=== PATIENT | male | born 1960 | race Caucasian/White ===

== ENCOUNTER 2023-05-25 03:28 | Emergency (ER) | payer BC, SELFPAY ==
--- NOTE | 2023-05-25 03:30 | RT.EKG_ITS ---
APPROVED REPORT Exam: Resting ECG Reason for Exam: abd pain Patient Location: E HR:66 bpm ECG Measurements Heart Rate 66 AXIS LA 149 P 62 QRSd 105 QRS 72 QT 408 T 56 QTc 429 Conclusion Sinus rhythm...normal P axis, V-rate 60- 99 Low voltage, extremity leads...all extremity leads <0.5mV Physician: no stemi
[2023-05-25 03:34] VITALS: BP 161/84; PULSE 71; RESP 22; TEMP 36.8; O2SAT 99
--- NOTE | 2023-05-25 03:51 | W.ED.GENAD ---
Discharge Plan Disposition Patient Disposition: Home Condition: Good Discharge Details Clinical Impression: Acute right-sided thoracic back pain, Pleural effusion on right Primary Care Provider: Froilan Marcos ED Provider: Shailesh Silveira Home Meds and New Rx's Prescriptions: New cyclobenzaprine 10 mg tablet 10 mg PO TID Qty: 14 0RF lidocaine [Lidoderm] 5 % adhesive patch,medicated 1 patch Topical Q24H Qty: 15 0RF No Action budesonide-formoterol [Symbicort] 160-4.5 mcg/actuation HFA aerosol inhaler 2 puff inhalation BID PRN albuterol sulfate 90 mcg/actuation HFA aerosol inhaler 2 puff inhalation 6XD bupropion HCl 300 mg tablet extended release 24 hr 300 mg PO QAM ipratropium-albuterol 0.5 mg-3 mg(2.5 mg base)/3 mL solution for nebulization 3 ml inhalation QID PRN lisinopril 2.5 mg tablet 2.5 mg PO DAILY metformin 1,000 mg tablet 1,000 mg PO BID metoprolol tartrate 25 mg tablet 25 mg PO QID rosuvastatin 20 mg tablet 20 mg PO DAILY Stiolto Respimat 2.5-2.5 mcg/actuation mist 2 puff inhalation DAILY roflumilast 500 mcg tablet See Rx Instructions .ROUTE .COMPLEX Qty: 30 12RF Dose Instruction: TAKE ONE TABLET BY MOUTH EVERY DAY; START THIS DOSE AFTER FINISHING THE 250 MCG DOSE Rx Instructions: TAKE ONE TABLET BY MOUTH EVERY DAY; START THIS DOSE AFTER FINISHING THE 250 MCG DOSE Eliquis 5 mg tablet 5 mg PO DAILY Discharge Instructions Instructions: Pleural Effusion (ED), Flank Pain (ED) Additional Instructions: At this time your workup has returned reassuring. There is no evidence of infection in your blood or low blood levels. Your electrolytes and renal function is notably stable. There is no evidence of blood or infection in your urine. Your heart shows no evidence of heart attack on your initial and repeated blood work as well as your EKG. As we discussed together there is evidence of a very trace pleural effusion in your right lung with some irritation in that area. This may be causing a component of your symptoms. Additionally your low back pain may be referred from this, or separate but causing a bit of pain and strain in that area. Please take the Flexeril/cyclobenzaprine as needed for muscle relaxant. Please do not take this while driving, working, operating heavy machinery, or shooting. Please apply the Lidoderm patches to your back as needed. Please continue to take 1000 mg of Tylenol every 6 hours. The effusion should resolve on its own with time. If your symptoms continue to persist even after treatment, you may need to follow-up with press tender for potential drainage if indicated. If you notice any worsening of your symptoms, or any new symptoms such as vomiting, diarrhea, fever, chills, shortness of breath, chest pain, numbness, weakness, or fainting , please return immediately to the emergency department for reevaluation. Please follow up with your primary care provider as soon as possible for reassessment and reevaluation. As always, it was a pleasure participating in your medical care today. 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 Patient states that 4 days ago the pain began, it was sharp and achy in nature and present in the right back and flank and eventually transitioned into the right lower chest and right upper abdomen. He denies any vomiting or diarrhea. He has developed a mild cough but he states that this is more chronic than acute. He states that this feels completely different than his previous heart attack or blood clot. He has been patient taking his medications as directed. Pain is made worse with movement. Improved by nothing. Patient reports that he went to [facility] emergency department yesterday, had a seemingly very appropriate workup, had a CAT scan, and was informed findings were unremarkable. He states that his primary care provider reviewed the images and requested that the patient come back to the ER for reassessment. Patient did take Tylenol but this did not significantly change his symptoms. He denies any tearing or ripping sensation. No fever or chills. Exam demonstrates well-appearing male, mild right CVA tenderness and right reproducible tenderness to the right paraspinal space near L1. No anterior abdominal tenderness. Lungs are clear. Image report reviewed from [facility], no acute process in the abdomen and pelvis for noncontrast CT scan. Questionable mild bronchitis in the right lower lung field. Laboratory eval from report demonstrates no significant abnormality. Differential at this time includes urolithiasis which is unlikely, UTI, small bleb causing the patient's pain, potential PE which is unlikely given his compliance to his medication. Cardiac etiology appears unlikely but remains on the differential. Will get a D-dimer, evaluate electrolyte and renal status, check a troponin, urine, monitor closely give Ofirmev and Lidoderm patch. Bedside echo shows a slightly reduced ejection fraction, good lung sliding bilaterally, slightly enlarged right-sided kidney. 4:48 AM Laboratory workup demonstrates slightly elevated D-dimer, mildly elevated proBNP, no white count. Hemoglobin 13, stable renal function. Urinalysis negative. Bedside echo shows good lung sliding, slightly reduced ejection fraction, minimally enlarged right kidney. Patient does have a reported allergy to contrast, however this is not the case, he states that it was only because of his previous renal function. Will get contrasted CT imaging for further diagnostic evaluation as [facility]'s CAT scan did not identify acute process considering the current differential. 7:23 AM Initial and repeat troponin have returned normal. EKG stable. CTA of the chest shows no evidence of pulmonary embolism, or some mild irritation of the esophagus, as well as a trace right pleural effusion with subjacent subsegmental atelectasis in the right lung base. No evidence of localized pneumonia. The remainder of the CT scan is unremarkable otherwise per radiology. No other acute process in particular. I do wonder if this effusion may be causing the pain, as well as potential mild pulmonary fibrosis and/or adhesion from prior chemo/radiation albeit the opposite side. Back pain may be separate or mild and referred. Suspect mild paraspinal spasm as a secondary component of the pain. Patient is stable otherwise. Personal limited bedside echo showed no evidence of significant wall motion abnormality. There was a slightly reduced EF but no other major abnormality on personal assessment. Symptoms notably clinically inconsistent with dissection, PE, aneurysmal rupture, kidney stone, psoas muscle hematoma, or other abnormality. Will recommend continued Tylenol at home, Lidoderm patches, and the patient will be given Flexeril for continued use. Recommend close follow-up with PCP. If symptoms persist then pulmonology referral may be indicated for potential drainage of the trace effusion although I feel this is less likely. Discussed red flags which to return. I have extensively reviewed the treatment plan and discharge instructions with the patient. I have addressed all patient concerns at this time. The patient was made aware of what symptoms to monitor for that would warrant a return to the emergency department. Discussed the plan with the patient, they demonstrate verbal understanding and agreement with our assessment and plan at this time. The documentation in this chart was dictated using [employer] dictation software. Please excuse any dictation errors. FINDINGS: VASCULATURE: Pulmonary arteries: Normal. No pulmonary emboli. Aorta: No aortic aneurysm. No aortic dissection. Celiac trunk and mesenteric arteries: No occlusion or significant stenosis. Renal arteries: No occlusion or significant stenosis. CHEST: Lungs: Mild ground-glass attenuation of the lungs. Linear subsegmental atelectasis at the right lung base. No acute lung infiltrates. No pulmonary nodules. Pleural spaces: Trace right pleural effusion. No pneumothorax Heart: Unremarkable. No cardiomegaly. No pericardial effusion. Coronary arteries: Mild atherosclerotic calcifications of the coronary arteries. Mediastinal space: Mild diffuse thickening of the wall of the esophagus. ABDOMEN AND PELVIS: Liver: Focal fatty infiltration of the liver is seen adjacent to the falciform ligament. Otherwise unremarkable liver. Gallbladder and bile ducts: Unremarkable. No calcified stones. No ductal dilation. Pancreas: Unremarkable. No mass. No ductal dilation. Spleen: Unremarkable. No splenomegaly. Adrenal glands: Unremarkable. No mass. Kidneys and ureters: Unremarkable. No solid mass. No hydronephrosis. Stomach and bowel: Moderate to large amount of stool in the right colon. No gross bowel abnormalities. No obstruction. Appendix: Normal appendix. Intraperitoneal space: Unremarkable. No free air. No significant fluid collection. Urinary bladder: Urinary bladder partially collapsed, limiting evaluation,. Prominence of the wall of the urinary bladder, which may be related to underdistention. Reproductive: Mildly enlarged prostate. Possible TURP defect. Lymph nodes: Unremarkable. No enlarged lymph nodes. Bones/joints: Unremarkable. No acute fracture. Soft tissues: Large fat containing umbilical hernia, without inflammatory changes. Mild diastasis of the rectus abdominus muscles. Moderate size fat containing direct left inguinal hernia, without inflammatory changes. IMPRESSION: 1. No evidence of pulmonary embolism. 2. Findings raising the possibility of esophagitis. If the patient has symptoms referable to this region, suggest GI referral and consider upper endoscopy and/or esophagram for further evaluation. 3. Trace right pleural effusion, with subjacent subsegmental atelectasis at the right lung base. 4. Mild ground-glass attenuation of the lungs. This may be attributable to suboptimal inspiration or mild congestion. 5. Mildly enlarged prostate. 6. Large fat containing umbilical hernia, without inflammatory changes. 7. Moderate size fat containing direct left inguinal hernia, without inflammatory changes. 8. Prominence of the wall of the urinary bladder, which may be related to underdistention. Other etiologies are not excluded. Correlate with laboratory data. Thank you for allowing us to participate in the care of your patient. Dictated and Authenticated by: Adeline Washington MD 05/25/2023 6:59 AM Eastern Time ([place] & [place]) HPI General Date/Time Provider Initiated Documentation: 05/25/23 03:30. 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 Patient states that 4 days ago the pain began, it was sharp and achy in nature and present in the right back and flank and eventually transitioned into the right lower chest and right upper abdomen. He denies any vomiting or diarrhea. He has developed a mild cough but he states that this is more chronic than acute. He states that this feels completely different than his previous heart attack or blood clot. He has been patient taking his medications as directed. Pain is made worse with movement. Improved by nothing. Patient reports that he went to [facility] emergency department yesterday, had a CAT scan, and was informed findings were unremarkable. He states that his primary care provider reviewed the images and requested that the patient come back to the ER for reassessment. Patient did take Tylenol but this did not significantly change his symptoms. He denies any tearing or ripping sensation. No fever or chills. Related Data Home Medications Medication Instructions Recorded Confirmed albuterol sulfate 90 mcg/actuation 2 puff inhalation 6XD 05/01/21 05/25/23 aerosol inhaler bupropion HCl 300 mg 24 hr tablet, 300 mg PO QAM 05/01/21 05/25/23 extended release ipratropium 0.5 mg-albuterol 3 mg 3 ml inhalation QID PRN 05/01/21 05/25/23 (2.5 mg base)/3 mL nebulization soln lisinopril 2.5 mg tablet 2.5 mg PO DAILY 05/01/21 05/25/23 metformin 1,000 mg tablet 1,000 mg PO BID 05/01/21 05/25/23 metoprolol tartrate 25 mg tablet 25 mg PO QID 05/01/21 05/25/23 rosuvastatin 20 mg tablet 20 mg PO DAILY 05/01/21 05/25/23 tiotropium 2.5 mcg-olodaterol 2.5 2 puff inhalation DAILY 05/01/21 05/25/23 mcg/actuation mist for inhalation (Stiolto Respimat) budesonide-formoterol HFA 160 2 puff inhalation BID PRN 12/11/21 05/25/23 mcg-4.5 mcg/actuation aerosol inhaler (Symbicort) roflumilast 500 mcg tablet See Rx Instructions .Route 12/17/22 05/25/23 .COMPLEX #30 tabs apixaban 5 mg tablet (Eliquis) 5 mg PO DAILY 05/25/23 05/25/23 cyclobenzaprine 10 mg tablet 10 mg PO TID #14 tabs 05/25/23 lidocaine 5 % topical patch 1 patch topical Q24H #15 ea 05/25/23 (Lidoderm) Previous Rx's Medication Instructions Recorded roflumilast 500 mcg tablet See Rx Instructions .Route 12/17/22 .COMPLEX #30 tabs cyclobenzaprine 10 mg tablet 10 mg PO TID #14 tabs 05/25/23 lidocaine 5 % topical patch 1 patch topical Q24H #15 ea 05/25/23 (Lidoderm) Allergies Allergy/AdvReac Type Severity Reaction Status Date / Time Iodinated Contrast Media AdvReac Unknown screws up Unverified 05/25/23 03:40 my creatinine General Stated Complaint: Nk/Back Pain SOCORRO: 3 Review of Systems All systems reviewed & are unremarkable except as noted in HPI and below PFSH All Active Problems (Updated 05/25/23 @ 07:17 by Shailesh Silveira DO) Pleural effusion on right (Acute) Acute right-sided thoracic back pain (Acute) COPD (chronic obstructive pulmonary disease) (Chronic) Personal history of nicotine dependence (Acute) Atherosclerosis of coronary artery without angina pectoris (Acute) Primary malignant neoplasm of left lung (Acute) Acquired pes planus of right foot (Acute) Disorder of the skin and subcutaneous tissue, unspecified (Acute) Increased frequency of urination (Acute) Nausea (Acute) Dizziness and giddiness (Acute) Pain, joint, ankle and foot (Acute) Chronic renal impairment (Acute) Umbilical hernia without obstruction and without gangrene (Acute) Hypertensive disorder (Chronic) Neuropathy (Acute) Obstructive sleep apnea syndrome in adult (Acute) Insomnia (Acute) Acute stress disorder (Acute) Obesity (Chronic) Hyperlipidemia (Acute) Type 2 diabetes mellitus without complication (Acute) Medical History COPD (chronic obstructive pulmonary disease) Emphysematous bleb of lung Family History Mother Cancer Father Cancer Social History Smoking/Tobacco Use Status: Former Tobacco Use Quit Date: 05/27/01 Smoking risk assessment performed?: Yes Alcohol Intake: never Drug use: Never Substance use type: does not use Housing: apartment Do you feel safe at home: Yes Do you feel safe in your relationship?: Yes Exam Narrative Exam Narrative: 1.Const: Well-nourished, Well-developed, appearing stated age 2.Eyes: PERRL, no conjunctival injection, and symmetrical lids. 3.ENT: Atraumatic external nose and ears. Moist MM. Neck: Symmetric, trachea midline, No thyromegaly. 4.CVS: +S1/S2, No murmurs or gallops. Peripheral pulses 2+ and equal in all extremities. Brisk capillary refill in all extremities. 5.RESP: Unlabored respiratory effort. Clear to auscultation bilaterally. No wheezes rales or rhonchi 6.GI: Soft, Nontender/Nondistended, No hepatosplenomegaly. No guarding or rebound. Mild right-sided CVA tenderness. No pain to McBurney's point, negative Thomas sign. Mild reproducible right paraspinal tenderness at L1 7.MSK: Normocephalic/Atraumatic, Extremities w/o deformity or ttp No cyanosis or clubbing, Normal movement of all extremities 8.Skin: Warm, Dry. No rashes or lesions. 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 Sensation grossly intact, no focal neurologic deficits. 10.Psych: (AAO) x3. Appropriate mood and affect Course Vital Signs Vital signs: Vital Signs Temperature 36.8 C 05/25/23 03:34 Pulse 71 05/25/23 03:34 Respiratory Rate 22 05/25/23 03:34 Blood Pressure 161/84 H 05/25/23 03:34 Pulse Oximetry 99 05/25/23 03:34 Temperature 36.8 C 05/25/23 03:34 Temperature Source Oral 05/25/23 03:34 Pulse 71 05/25/23 03:34 Respiratory Rate 22 05/25/23 03:34 Respiratory Effort Normal, Non-Labored 05/25/23 03:44 Blood Pressure 161/84 H 05/25/23 03:34 Blood Pressure Position Sitting 05/25/23 03:34 Pulse Oximetry 99 05/25/23 03:34 Oxygen Delivery Method Room Air 05/25/23 03:34 Oxygen Flow Rate 0 05/25/23 03:34 Pain Level 7 05/25/23 03:44 POCUS Exam (ED) Limited Cardiac Exam DATE OF EXAM: 05/25/23 TIME OF EXAM: 04:47 PROVIDER THAT PERFORMED THE STUDY: Shailesh Silveira IS THIS A REPEAT EXAM DURING THIS ENCOUNTER: no REASON FOR EXAM: Chest pain VISUALIZED STRUCTURES: Left atrium, Left ventricle and Interventricular septum VIEW OBTAINED: Parasternal long-axis PERTINENT FINDINGS/IMPRESSION: LV dysfunction :mild Exam complete Limited Thoracic Lung Exam DATE OF EXAM: 05/25/23 TIME OF EXAM: 04:48 PROVIDER THAT PERFORMED THE STUDY: Shailesh Silveira IS THIS A REPEAT EXAM DURING THIS ENCOUNTER: No REASON FOR EXAM: Chest pain VISUALIZED STRUCTURES: right anterior and left anterior PERTINENT FINDINGS/IMPRESSION: lung sliding left side and lung sliding left side Exam complete
[2023-05-25 04:02] LABS: Abs Immature Grans 0.02 10^3/uL (0.0-0.06); Absolute Basophil Count 0.07 10^3/uL (0.0-0.2); Absolute Eosinophil Count 0.16 10^3/uL (0.0-0.7); Absolute Lymphocyte Count 1.28 10^3/uL (1.2-3.4); Absolute Monocyte Count 0.86 10^3/uL (0.1-0.8); Absolute Neutrophil Count 5.98 10^3/uL (1.2-6.7); Basophils % 0.8; Eosinophils % 1.9; HCT 40.8 % (40.0-50.0); HGB 13.3 g/dL (13.5-17.5); Immature Grans % 0.2; Lymphocytes % 15.3; MCH 32.1 pg (27.0-33.0); MCHC 32.6 % (32.0-36.0); MCV 99 fL (80-95); MPV 9.2 fL (8.0-11.0); Monocytes % 10.3; Neutrophils % 71.5; Platelet Count 256 10^3/uL (130-400); RBC 4.14 10^6/uL (4.36-5.78); RDW 13.4 % (11.8-14.1); WBC 8.37 10^3/uL (4.4-10.8)
[2023-05-25] MEDS: Lidocaine 5% Patch 1 PATCH TP (04:04)
[2023-05-25] MEDS: ACETAMINOPHEN 1,000 MG/100 ML BTL 400 MG IVPB (04:04)
[2023-05-25 04:15] LABS: INR 1.2 (0.9-1.1); PTT Activated 35.2 sec (23.6-32.8); Prothrombin Time 11.8 sec (9.1-11.1)
[2023-05-25 04:26] LABS: ALT 17 U/L (16-63); AST 17 U/L (15-37); Albumin 3.4 g/dL (3.4-5.0); Alkaline Phosphatase 83 U/L (46-116); Anion Gap 10.1 mmol/L (3-11); BUN 19 mg/dL (7-18); Bilirubin, Total 0.8 mg/dL (0.2-1.0); CO2 27.9 mmol/L (21.0-32.0); CREATININE 1.3 mg/dL (0.70-1.30); Calcium 9.2 mg/dL (8.5-10.1); Chloride 103 mmol/L (98-107); Estimated GFR 61.35 (mL/min/1.73m2); Glucose 150 mg/dL (74-106); Lipase 31 U/L (16-77); NT-proBNP 355 pg/mL (<300); Potassium 4.4 mmol/L (3.5-5.1); Sodium 141 mmol/L (136-145); Total Protein 7.2 g/dL (6.4-8.2); Troponin I < 50 ng/L (<or=60)
[2023-05-25 04:31] LABS: Bilirubin Small (Negative); Blood Negative (Negative); Clarity Clear (Clear); Glucose Negative (Negative); Ketones Trace mg/dL (Negative); Leukocyte Esterase Negative (Negative); Nitrite Negative (Negative); Specific Gravity >= 1.030 (1.005-1.025); Urobilinogen 0.2 mg/dL (Up to 0.2); pH 5.5 (5-8)
[2023-05-25 04:31] LABS: D-Dimer 532 ng/mlFEU (<500)
--- NOTE | 2023-05-25 04:34 | DI.CT_ITS ---
Exam(s) CT CHEST PE ABD PELVIS W EXAM: CT CHEST PE ABD PELVIS W CLINICAL HISTORY: right chest pain, eval for PE, rt flank pain, h/o lung cancer. TECHNIQUE: Imaging Protocol: Axial CT angiography was performed with multi-slice acquisition and mu lti-planar and/or 3D reconstructions. CONTRAST MATERIAL: Intravenous: Omnipaque 350 Contrast volume:100 ml COMPARISON: CT CT CHEST/ABD/PELVIS W/CONTRAST from 05/22/2021 FINDINGS: CHEST: Pulmonary Arteries: No evidence of filling defects to suggest pulmonary emboli. Tracheobronchial tree: Mild bronchial thickening in the lower lobes. No bronchiectasis or mucus plug ging. Mediastinum and Domonique: Mild diffuse esophageal wall thickening could indicate esophagitis. No focal m ass. No fluid within the esophagus. This is not significantly changed from the prior exam no domina nt adenopathy or fluid collection. Pulmonary parenchyma: atelectasis right lung base. Left upper lobe scarring, unchanged. No consolid ation or dominant measurable mass. Mild emphysematous changes. Pleura: Trace right pleural effusion. No pneumothorax. Heart: The heart is notdilated. Moderate coronary artery calcifications are seen. Aorta: Thoracic aorta non-dilated. Bones: Unremarkable for age. Tubes, Catheters, and Lines: None. ABDOMEN and PELVIS: Liver: Normal size. Normal density. No suspicious measurable mass. Portal, Superior Mesenteric, and Splenic Veins: Unremarkable. Gallbladder and Biliary Tract: No radiodense calculus. No biliary dilatation. Pancreas: Normal density, no abnormal calcifications or inflammatory process. Spleen: Normal. Adrenals: No masses seen. Kidneys: Normal size, contour and axis. No radiodense stones. No obstructive uropathy. No masses seen . Vasculature: Abdominal aorta non-dilated. Moderate atherosclerotic changes. Bowel: Moderate quantity of stool. No obstruction or bowel wall thickening. Appendix is unremarkable . Peritoneal Cavity: No ascites, collection or mesenteric inflammatory response. Lymph Nodes: Within normal limits. Soft Tissues: Large fat containing umbilical hernia. Fat containing left inguinal hernia. Bladder: Not well distended. No visible stone or mass.. Reproductive Organs: Question of TURP defect in prostate.. Lymph Nodes: Within normal limits. Bones: Unremarkable for age.. IMPRESSION: 1. No evidence of pulmonary embolism. Trace right pleural effusion. Right basilar atelectasis. Mi ld bronchial wall thickening. 2. Diffuse esophageal wall thickening could indicate esophagitis. This is not significantly changed from the prior exam. 3. No acute abdominal or pelvic process. RADIATION DOSE DELIVERED: Total DLP DATA REPOSITORY: All CT scans at this facility are submitted to the National Radiology Data Registry (NRDR) Dose Index Registry (DIR) with the [employer] (A[employer]). RADIATION OPTIMIZATION: All CT scans at this facility use at least one of these dose optimization te chniques: automated exposure control; mA and/or kV adjustment per patient size (includes targeted exa ms where dose is matched to clinical indication); or iterative reconstruction.
[2023-05-25 04:41] LABS: Bacteria Rare HPF (Negative); C & S Indicated? No; Casts Negative LPF (Negative); Crystals Negative HPF (Negative); Epithelial Cells Rare HPF (Negative); Mucus Negative (Negative); RBC Negative HPF (0-2); WBC Negative HPF (0-5)
[2023-05-25] MEDS: Omnipaque 350 MG/ML 100 ML BTL IJ (05:20)
[2023-05-25] MEDS: Normal Saline - Diluent 50 ML VIAL IJ (05:21)
[2023-05-25] MEDS: Normal Saline Flush 10 ML SYR IVP (05:21)
--- NOTE | 2023-05-25 06:59 | DI.VRAD_ITS ---
PROCEDURE INFORMATION: Exam: CTA Chest With Contrast CTA Abdomen With Contrast Exam date and time: 05/25/2023 5:05 AM Age: 63 years old Clinical indication: Chest wall pain; Abdominal pain; Flank; Other: Right; Additional info: Right flank pain, chest pain, h/o cancer TECHNIQUE: Imaging protocol: Computed tomographic angiography of the chest with contrast. Exam focused on the arteries. Computed tomographic angiography of the abdomen with contrast. Exam focused on the arteries. 3D rendering (Not supervised by radiologist): MIP and/or 3D reconstructed images were created by the technologist. Contrast material: OMNI 350; Contrast volume: 100 ml; Contrast route: INTRAVENOUS (IV); COMPARISON: CT CHEST/ABD/PELVIS W/CONTRAST 05/22/2021 1:10 PM FINDINGS: VASCULATURE: Pulmonary arteries: Normal. No pulmonary emboli. Aorta: No aortic aneurysm. No aortic dissection. Celiac trunk and mesenteric arteries: No occlusion or significant stenosis. Renal arteries: No occlusion or significant stenosis. CHEST: Lungs: Mild ground-glass attenuation of the lungs. Linear subsegmental atelectasis at the right lung base. No acute lung infiltrates. No pulmonary nodules. Pleural spaces: Trace right pleural effusion. No pneumothorax. Heart: Unremarkable. No cardiomegaly. No pericardial effusion. Coronary arteries: Mild atherosclerotic calcifications of the coronary arteries. Mediastinal space: Mild diffuse thickening of the wall of the esophagus. ABDOMEN AND PELVIS: Liver: Focal fatty infiltration of the liver is seen adjacent to the falciform ligament. Otherwise unremarkable liver. Gallbladder and bile ducts: Unremarkable. No calcified stones. No ductal dilation. Pancreas: Unremarkable. No mass. No ductal dilation. Spleen: Unremarkable. No splenomegaly. Adrenal glands: Unremarkable. No mass. Kidneys and ureters: Unremarkable. No solid mass. No hydronephrosis. Stomach and bowel: Moderate to large amount of stool in the right colon. No gross bowel abnormalities. No obstruction. Appendix: Normal appendix. Intraperitoneal space: Unremarkable. No free air. No significant fluid collection. Urinary bladder: Urinary bladder partially collapsed, limiting evaluation,. Prominence of the wall of the urinary bladder, which may be related to underdistention. Reproductive: Mildly enlarged prostate. Possible TURP defect. Lymph nodes: Unremarkable. No enlarged lymph nodes. Bones/joints: Unremarkable. No acute fracture. Soft tissues: Large fat containing umbilical hernia, without inflammatory changes. Mild diastasis of the rectus abdominus muscles. Moderate size fat containing direct left inguinal hernia, without inflammatory changes. IMPRESSION: 1. No evidence of pulmonary embolism. 2. Findings raising the possibility of esophagitis. If the patient has symptoms referable to this region, suggest GI referral and consider upper endoscopy and/or esophagram for further evaluation. 3. Trace right pleural effusion, with subjacent subsegmental atelectasis at the right lung base. 4. Mild ground-glass attenuation of the lungs. This may be attributable to suboptimal inspiration or mild congestion. 5. Mildly enlarged prostate. 6. Large fat containing umbilical hernia, without inflammatory changes. 7. Moderate size fat containing direct left inguinal hernia, without inflammatory changes. 8. Prominence of the wall of the urinary bladder, which may be related to underdistention. Other etiologies are not excluded. Correlate with laboratory data. Dictated and Authenticated by: Adeline Washington MD. Ordering:CLARA Cash MD
[2023-05-25 07:11] LABS: Troponin I < 50 ng/L (<or=60)
[2023-05-25 07:27] VITALS: BP 154/82; PULSE 63; TEMP 36.4; O2SAT 98
[2023-05-25] MEDS: Cyclobenzaprine 10 MG TAB, 3 TABS/BTL PO (07:35)
== END 2023-05-25 07:42 | disposition home or self-care (01) ==
PROVIDERS: Emergency Provider Student in an Organized Health Care Education/Training Program; PCP Family Medicine
DX: J90 Pleural effusion, not elsewhere classified (principal); M54.9 Dorsalgia, unspecified
CPT/HCPCS: 71275; 74177; 76604; 80053; 83690; 93005; 93308; 96365; 99285; 81003; 81015; 83880; 84484; 85025; 85379; 85610; 85730; 93010; 99284; J0131; J3490

== ENCOUNTER 2023-10-07 04:50 | Outpatient (CLI) | payer OTHER, SELFPAY ==
[2023-10-07 07:36] LABS: Abs Immature Grans 0.03 10^3/uL (0.0-0.06); Absolute Basophil Count 0.13 10^3/uL (0.0-0.2); Absolute Eosinophil Count 0.38 10^3/uL (0.0-0.7); Absolute Lymphocyte Count 1.44 10^3/uL (1.2-3.4); Absolute Monocyte Count 0.69 10^3/uL (0.1-0.8); Absolute Neutrophil Count 8.42 10^3/uL (1.2-6.7); Basophils % 1.2 %; Eosinophils % 3.4 %; HCT 44.4 % (40.0-50.0); HGB 13.9 g/dL (13.5-17.5); Immature Grans % 0.3 %; MCH 30.4 pg (27.0-33.0); MCHC 31.3 % (32.0-36.0); MCV 97 fL (80-95); MPV 8.4 fL (8.0-11.0); Monocytes % 6.2 %; Neutrophils % 75.9 %; Platelet Count 381 10^3/uL (130-400); RBC 4.57 10^6/uL (4.36-5.78); RDW 14.2 % (11.8-14.1); WBC 11.09 10^3/uL (4.4-10.8)
[2023-10-07 07:52] LABS: ALT 15 U/L (16-63); AST 13 U/L (15-37); Albumin 3.1 g/dL (3.4-5.0); Alkaline Phosphatase 106 U/L (46-116); Anion Gap 7.2 mmol/L (3-11); BUN 20 mg/dL (7-18); Bilirubin, Total 0.5 mg/dL (0.2-1.0); CO2 30.8 mmol/L (21.0-32.0); CREATININE 1.1 mg/dL (0.70-1.30); Calcium 9.3 mg/dL (8.5-10.1); Chloride 102 mmol/L (98-107); Estimated GFR 74.96 (mL/min/1.73m2); Glucose 133 mg/dL (74-106); Magnesium 1.5 mg/dL (1.8-2.4); Potassium 4.5 mmol/L (3.5-5.1); Sodium 140 mmol/L (136-145); Total Protein 7.3 g/dL (6.4-8.2)
== END 2023-10-07 04:51 | disposition home or self-care (01) ==
LOC: LBO 04:50
PROVIDERS: PCP Family Medicine; Visit Provider Internal Medicine Medical Oncology
DX: C15.5 Malignant neoplasm of lower third of esophagus (principal)
CPT/HCPCS: 36415; 80053; 83735; 85025

== ENCOUNTER 2023-10-22 01:09 | Outpatient (RCR) | payer OTHER, SELFPAY ==
[2023-10-14] MEDS: Normal Saline Flush 10 ML SYR IVP (10:40)
[2023-10-14 11:10] LABS: Abs Immature Grans 0.04 10^3/uL (0.0-0.06); Absolute Basophil Count 0.06 10^3/uL (0.0-0.2); Absolute Eosinophil Count 0.35 10^3/uL (0.0-0.7); Absolute Monocyte Count 0.33 10^3/uL (0.1-0.8); Absolute Neutrophil Count 3.92 10^3/uL (1.2-6.7); Basophils % 1.1 %; Eosinophils % 6.6 %; HCT 39.8 % (40.0-50.0); HGB 12.7 g/dL (13.5-17.5); Immature Grans % 0.8 %; Lymphocytes % 11.3 %; MCH 30.5 pg (27.0-33.0); MCHC 31.9 % (32.0-36.0); MCV 95 fL (80-95); MPV 9.2 fL (8.0-11.0); Monocytes % 6.2 %; Platelet Count 305 10^3/uL (130-400); RBC 4.17 10^6/uL (4.36-5.78); RDW 14.1 % (11.8-14.1); RDW-SD 49.5 fL
[2023-10-14 11:37] LABS: ALT 16 U/L (16-63); AST 15 U/L (15-37); Alkaline Phosphatase 101 U/L (46-116); Anion Gap 7.1 mmol/L (3-11); BUN 23 mg/dL (7-18); Bilirubin, Total 0.6 mg/dL (0.2-1.0); CO2 27.9 mmol/L (21.0-32.0); CREATININE 0.9 mg/dL (0.70-1.30); Chloride 102 mmol/L (98-107); Estimated GFR 95.37 (mL/min/1.73m2); Glucose 176 mg/dL (74-106); Magnesium 1.4 mg/dL (1.8-2.4); Potassium 4.4 mmol/L (3.5-5.1); Sodium 137 mmol/L (136-145); Total Protein 6.8 g/dL (6.4-8.2)
[2023-10-22] MEDS: Normal Saline Flush 10 ML SYR IVP (07:45)
[2023-10-22 08:14] LABS: Abs Immature Grans 0.02 10^3/uL (0.0-0.06); Absolute Basophil Count 0.08 10^3/uL (0.0-0.2); Absolute Eosinophil Count 0.26 10^3/uL (0.0-0.7); Absolute Lymphocyte Count 0.66 10^3/uL (1.2-3.4); Absolute Monocyte Count 0.59 10^3/uL (0.1-0.8); Absolute Neutrophil Count 2.82 10^3/uL (1.2-6.7); Basophils % 1.8 %; Eosinophils % 5.9 %; HCT 40.1 % (40.0-50.0); HGB 12.9 g/dL (13.5-17.5); Immature Grans % 0.5 %; Lymphocytes % 14.9 %; MCH 30.8 pg (27.0-33.0); MCHC 32.2 % (32.0-36.0); MCV 96 fL (80-95); MPV 9.1 fL (8.0-11.0); Monocytes % 13.3 %; Neutrophils % 63.6 %; Platelet Count 292 10^3/uL (130-400); RBC 4.19 10^6/uL (4.36-5.78); RDW 14.5 % (11.8-14.1); RDW-SD 49.8 fL; WBC 4.43 10^3/uL (4.4-10.8)
[2023-10-22 08:30] LABS: ALT 20 U/L (16-63); AST 14 U/L (15-37); Albumin 3.1 g/dL (3.4-5.0); Alkaline Phosphatase 102 U/L (46-116); Anion Gap 6.5 mmol/L (3-11); BUN 18 mg/dL (7-18); Bilirubin, Total 0.6 mg/dL (0.2-1.0); CO2 27.5 mmol/L (21.0-32.0); Chloride 102 mmol/L (98-107); Estimated GFR 84.05 (mL/min/1.73m2); Glucose 144 mg/dL (74-106); Magnesium 1.7 mg/dL (1.8-2.4); Potassium 4.7 mmol/L (3.5-5.1); Sodium 136 mmol/L (136-145); Total Protein 6.9 g/dL (6.4-8.2)
== END 2023-10-25 23:59 | disposition home or self-care (01) ==
LOC: INF 01:09
PROVIDERS: PCP Family Medicine; Visit Provider Internal Medicine Medical Oncology
DX: Z45.2 Encounter for adjustment and management of vascular access device (principal); C15.5 Malignant neoplasm of lower third of esophagus
CPT/HCPCS: 36591; 80053; 83735; 85025

== ENCOUNTER 2023-11-11 05:44 | Outpatient (RCR) | payer OTHER, SELFPAY ==
[2023-10-28] MEDS: Normal Saline Flush 10 ML SYR IVP (08:00)
[2023-10-28 08:39] LABS: Abs Immature Grans 0.02 10^3/uL (0.0-0.06); Absolute Basophil Count 0.08 10^3/uL (0.0-0.2); Absolute Eosinophil Count 0.23 10^3/uL (0.0-0.7); Absolute Lymphocyte Count 0.42 10^3/uL (1.2-3.4); Absolute Monocyte Count 0.46 10^3/uL (0.1-0.8); Absolute Neutrophil Count 3.97 10^3/uL (1.2-6.7); Basophils % 1.5 %; Eosinophils % 4.4 %; HCT 38.6 % (40.0-50.0); HGB 12.6 g/dL (13.5-17.5); Immature Grans % 0.4 %; Lymphocytes % 8.1 %; MCH 30.7 pg (27.0-33.0); MCHC 32.6 % (32.0-36.0); MCV 94 fL (80-95); MPV 9.5 fL (8.0-11.0); Monocytes % 8.9 %; Neutrophils % 76.7 %; Platelet Count 297 10^3/uL (130-400); RDW 14.4 % (11.8-14.1); RDW-SD 49.1 fL; WBC 5.18 10^3/uL (4.4-10.8)
[2023-10-28 08:55] LABS: ALT 17 U/L (16-63); AST 13 U/L (15-37); Albumin 3.1 g/dL (3.4-5.0); Alkaline Phosphatase 95 U/L (46-116); Anion Gap 7.5 mmol/L (3-11); BUN 19 mg/dL (7-18); Bilirubin, Total 0.8 mg/dL (0.2-1.0); CO2 28.5 mmol/L (21.0-32.0); CREATININE 1.1 mg/dL (0.70-1.30); Calcium 9.4 mg/dL (8.5-10.1); Chloride 101 mmol/L (98-107); Estimated GFR 74.96 (mL/min/1.73m2); Glucose 241 mg/dL (74-106); Magnesium 1.4 mg/dL (1.8-2.4); Potassium 4.5 mmol/L (3.5-5.1); Sodium 137 mmol/L (136-145)
[2023-11-04] MEDS: Normal Saline Flush 10 ML SYR IVP (07:06)
[2023-11-04 07:23] LABS: Abs Immature Grans 0.02 10^3/uL (0.0-0.06); Absolute Eosinophil Count 0.22 10^3/uL (0.0-0.7); Absolute Lymphocyte Count 0.33 10^3/uL (1.2-3.4); Absolute Monocyte Count 0.55 10^3/uL (0.1-0.8); Absolute Neutrophil Count 4.17 10^3/uL (1.2-6.7); Basophils % 1.9 %; Eosinophils % 4.1 %; HCT 37.4 % (40.0-50.0); HGB 12.2 g/dL (13.5-17.5); Immature Grans % 0.4 %; Lymphocytes % 6.1 %; MCH 31.3 pg (27.0-33.0); MCHC 32.6 % (32.0-36.0); MCV 96 fL (80-95); MPV 9.2 fL (8.0-11.0); Monocytes % 10.2 %; Neutrophils % 77.3 %; Platelet Count 310 10^3/uL (130-400); RDW 14.9 % (11.8-14.1); RDW-SD 50.7 fL; WBC 5.39 10^3/uL (4.4-10.8)
[2023-11-04 07:41] LABS: ALT 18 U/L (16-63); AST 13 U/L (15-37); Alkaline Phosphatase 103 U/L (46-116); Anion Gap 10.4 mmol/L (3-11); BUN 15 mg/dL (7-18); Bilirubin, Total 0.6 mg/dL (0.2-1.0); CO2 25.6 mmol/L (21.0-32.0); CREATININE 1.1 mg/dL (0.70-1.30); Calcium 9.3 mg/dL (8.5-10.1); Chloride 102 mmol/L (98-107); Estimated GFR 74.96 (mL/min/1.73m2); Glucose 207 mg/dL (74-106); Magnesium 1.3 mg/dL (1.8-2.4); Potassium 4.2 mmol/L (3.5-5.1); Sodium 138 mmol/L (136-145); Total Protein 6.9 g/dL (6.4-8.2)
[2023-11-11] MEDS: Normal Saline Flush 10 ML SYR IVP (07:25)
[2023-11-11 07:59] LABS: Abs Immature Grans 0.03 10^3/uL (0.0-0.06); Absolute Basophil Count 0.06 10^3/uL (0.0-0.2); Absolute Eosinophil Count 0.13 10^3/uL (0.0-0.7); Absolute Lymphocyte Count 0.22 10^3/uL (1.2-3.4); Absolute Monocyte Count 0.65 10^3/uL (0.1-0.8); Absolute Neutrophil Count 3.72 10^3/uL (1.2-6.7); Basophils % 1.2 %; Eosinophils % 2.7 %; HCT 33.7 % (40.0-50.0); HGB 10.8 g/dL (13.5-17.5); Immature Grans % 0.6 %; Lymphocytes % 4.6 %; MCH 31.1 pg (27.0-33.0); MCV 97 fL (80-95); MPV 9.2 fL (8.0-11.0); Monocytes % 13.5 %; Neutrophils % 77.4 %; Platelet Count 269 10^3/uL (130-400); RBC 3.47 10^6/uL (4.36-5.78); RDW 15.8 % (11.8-14.1); RDW-SD 54.7 fL; WBC 4.81 10^3/uL (4.4-10.8)
[2023-11-11 08:18] LABS: ALT 18 U/L (16-63); AST 11 U/L (15-37); Albumin 2.7 g/dL (3.4-5.0); Alkaline Phosphatase 95 U/L (46-116); Anion Gap 7.1 mmol/L (3-11); BUN 19 mg/dL (7-18); Bilirubin, Total 0.6 mg/dL (0.2-1.0); CO2 28.9 mmol/L (21.0-32.0); CREATININE 1.2 mg/dL (0.70-1.30); Calcium 9.1 mg/dL (8.5-10.1); Chloride 99 mmol/L (98-107); Estimated GFR 67.53 (mL/min/1.73m2); Glucose 147 mg/dL (74-106); Magnesium 1.6 mg/dL (1.8-2.4); Potassium 4.4 mmol/L (3.5-5.1); Sodium 135 mmol/L (136-145); Total Protein 6.6 g/dL (6.4-8.2)
[2023-11-22] MEDS: Normal Saline Flush 10 ML SYR IVP (07:24)
[2023-11-22 07:30] LABS: Abs Immature Grans 0.04 10^3/uL (0.0-0.06); Absolute Basophil Count 0.05 10^3/uL (0.0-0.2); Absolute Eosinophil Count 0.05 10^3/uL (0.0-0.7); Absolute Lymphocyte Count 0.32 10^3/uL (1.2-3.4); HCT 33.7 % (40.0-50.0); HGB 10.9 g/dL (13.5-17.5); Immature Grans % 0.8 %; Lymphocytes % 6.3 %; MCH 31.4 pg (27.0-33.0); MCHC 32.3 % (32.0-36.0); MCV 97 fL (80-95); Monocytes % 17.8 %; Neutrophils % 73.1 %; Platelet Count 278 10^3/uL (130-400); RBC 3.47 10^6/uL (4.36-5.78); RDW-SD 59.1 fL; WBC 5.06 10^3/uL (4.4-10.8)
[2023-11-22 07:46] LABS: ALT 22 U/L (16-63); AST 21 U/L (15-37); Albumin 2.6 g/dL (3.4-5.0); Alkaline Phosphatase 110 U/L (46-116); Anion Gap 6.6 mmol/L (3-11); BUN 13 mg/dL (7-18); Bilirubin, Total 0.49 mg/dL (0.2-1.0); CO2 28.4 mmol/L (21.0-32.0); Calcium 9.2 mg/dL (8.5-10.1); Chloride 101 mmol/L (98-107); Estimated GFR 84.05 (mL/min/1.73m2); Glucose 143 mg/dL (74-106); Magnesium 1.5 mg/dL (1.8-2.4); Potassium 4.3 mmol/L (3.5-5.1); Sodium 136 mmol/L (136-145); Total Protein 6.5 g/dL (6.4-8.2)
== END 2023-11-24 23:59 | disposition home or self-care (01) ==
LOC: INF 05:44
PROVIDERS: PCP Family Medicine; Visit Provider Internal Medicine Medical Oncology
DX: C15.5 Malignant neoplasm of lower third of esophagus (principal); Z45.2 Encounter for adjustment and management of vascular access device
CPT/HCPCS: 36591; 80053; 83735; 85025

== ENCOUNTER 2023-11-20 08:50 | Emergency (ER) | payer OTHER, SELFPAY ==
[2023-11-20] VITALS (16 sets, daily range): BP systolic 94–119; BP diastolic 56–75; PULSE 69–80; RESP 14–22; TEMP 36.4; O2SAT 95
[2023-11-20] MEDS: MORPHine 4 MG/ML SYR IVP (09:42)
[2023-11-20] MEDS: Normal Saline 10 ML VIAL IJ (09:43)
[2023-11-20] MEDS: Normal Saline 1,000 ML 1000 ML IV (09:43)
[2023-11-20] MEDS: Ondansetron 4 MG/2 ML VIAL IVP (09:43)
[2023-11-20 09:53] LABS: Abs Immature Grans 0.02 10^3/uL (0.0-0.06); Absolute Basophil Count 0.03 10^3/uL (0.0-0.2); Absolute Eosinophil Count 0.02 10^3/uL (0.0-0.7); Absolute Monocyte Count 0.63 10^3/uL (0.1-0.8); Absolute Neutrophil Count 3.63 10^3/uL (1.2-6.7); Basophils % 0.7 %; Eosinophils % 0.4 %; HCT 31.4 % (40.0-50.0); HGB 10.2 g/dL (13.5-17.5); Immature Grans % 0.4 %; Lymphocytes % 4.4 %; MCH 31.6 pg (27.0-33.0); MCHC 32.5 % (32.0-36.0); MCV 97 fL (80-95); MPV 9.1 fL (8.0-11.0); Monocytes % 13.9 %; Neutrophils % 80.2 %; Platelet Count 237 10^3/uL (130-400); RBC 3.23 10^6/uL (4.36-5.78); RDW 16.7 % (11.8-14.1); RDW-SD 58.9 fL; WBC 4.53 10^3/uL (4.4-10.8)
[2023-11-20 10:08] LABS: Magnesium 1.7 mg/dL (1.8-2.4)
[2023-11-20 10:14] LABS: ALT 16 U/L (16-63); AST 15 U/L (15-37); Albumin 2.5 g/dL (3.4-5.0); Alkaline Phosphatase 100 U/L (46-116); Anion Gap 5.9 mmol/L (3-11); BUN 17 mg/dL (7-18); Bilirubin, Total 0.46 mg/dL (0.2-1.0); CO2 29.1 mmol/L (21.0-32.0); Calcium 9.2 mg/dL (8.5-10.1); Chloride 100 mmol/L (98-107); Estimated GFR 84.05 (mL/min/1.73m2); Glucose 172 mg/dL (74-106); Potassium 4.2 mmol/L (3.5-5.1); Sodium 135 mmol/L (136-145); Total Protein 6.4 g/dL (6.4-8.2)
[2023-11-20 10:48] LABS: Creatine Kinase 28 U/L (39-308)
[2023-11-20 10:53] LABS: Procalcitonin 0.1 ng/mL
[2023-11-20] MEDS: Heparin 500 UNITS/5 ML SYRINGE (12:26)
--- NOTE | 2023-11-20 15:22 | ED.GENADUL_ITS ---
Discharge Plan Disposition Patient Disposition: Home Condition: Stable Discharge Details Clinical Impression: Volume depletion Primary Care Provider: Froilan Marcos ED Provider: Darin Puckett Home Meds and New Rx's Prescriptions: No Action budesonide-formoterol [Symbicort] 160-4.5 mcg/actuation HFA aerosol inhaler 2 puff inhalation BID PRN albuterol sulfate 90 mcg/actuation HFA aerosol inhaler 2 puff inhalation 6XD bupropion HCl 300 mg tablet extended release 24 hr 300 mg PO QAM ipratropium-albuterol 0.5 mg-3 mg(2.5 mg base)/3 mL solution for nebulization 3 ml inhalation QID PRN lisinopril 2.5 mg tablet 2.5 mg PO DAILY metformin 1,000 mg tablet 1,000 mg PO BID metoprolol tartrate 25 mg tablet 100 mg PO BID rosuvastatin 20 mg tablet 20 mg PO DAILY Stiolto Respimat 2.5-2.5 mcg/actuation mist 2 puff inhalation DAILY roflumilast 500 mcg tablet 500 mcg PO DAILY Qty: 90 4RF Rx Instructions: 500 mcg orally daily; lidocaine [Lidoderm] 5 % adhesive patch,medicated 1 patch Topical Q24H Qty: 15 0RF omeprazole 40 mg capsule,delayed release(DR/EC) 40 mg PO DAILY Patient Comments: TAKE ONE CAPSULE BY MOUTH EVERY DAY magnesium oxide 400 mg (241.3 mg magnesium) tablet 400 mg PO DAILY Patient Comments: TAKE ONE TABLET BY MOUTH EVERY DAY sucralfate 1 gram tablet 1 g PO TID PRN Patient Comments: DISSOLVE ONE TABLET IN 8 OUNCES OF WATER UNTIL A SLURRY IS MADE, DRINK BY MOUTH UP TO 3 TIMES DAILY NEEDED prochlorperazine maleate 10 mg tablet 10 mg PO Q6H PRN Patient Comments: TAKE ONE TABLET BY MOUTH EVERY 6 HOURS NEEDED FOR NAUSEA oxycodone [OxyContin] 10 mg tablet,oral only,ext.rel.12 hr 10 mg PO Q12H PRN Patient Comments: TAKE ONE TABLET BY MOUTH EVERY 12 HOURS cyclobenzaprine 10 mg tablet 10 mg PO TID PRN Discharge Instructions Additional Instructions: increase fluid intake at home follow up with [facility]il[facility] Discharge Data Discharge Date/Time-TO BE ENTERED AT DEPARTURE: 11/20/23 12:26 HPI General Date/Time Provider Initiated Documentation: 11/20/23 08:51 . Limitations to Documentation: no limitations . Information obtained by: patient . HPI Narrative: 63-year-old gentleman with past medical history of diabetes, stage III esophageal cancer presents for evaluation of abdominal pain, nausea vomiting and diarrhea. Patient was referred for evaluation by his radiation oncologist. He finished his chemotherapy and radiation treatment on November 14. He reports that the abdominal flank pain has been ongoing for some time and is only been worsening. He reports since the chemotherapy he has generally been pretty wiped out and fatigued. He states that he had few days of nausea, vomiting and diarrhea. But this is resolved and he has not had any additional symptoms of that today. He reports generally poor p.o. intake secondary to poor appetite. Related Data Home Medications Medication Instructions Recorded Confirmed albuterol sulfate 90 mcg/actuation 2 puff inhalation 6XD 05/01/21 11/20/23 aerosol inhaler bupropion HCl 300 mg 24 hr tablet, 300 mg PO QAM 05/01/21 11/20/23 extended release ipratropium 0.5 mg-albuterol 3 mg 3 ml inhalation QID PRN 05/01/21 11/20/23 (2.5 mg base)/3 mL nebulization soln lisinopril 2.5 mg tablet 2.5 mg PO DAILY 05/01/21 11/20/23 metformin 1,000 mg tablet 1,000 mg PO BID 05/01/21 11/20/23 metoprolol tartrate 25 mg tablet 100 mg PO BID 05/01/21 11/20/23 rosuvastatin 20 mg tablet 20 mg PO DAILY 05/01/21 11/20/23 tiotropium 2.5 mcg-olodaterol 2.5 2 puff inhalation DAILY 05/01/21 11/20/23 mcg/actuation mist for inhalation (Stiolto Respimat) budesonide-formoterol HFA 160 2 puff inhalation BID PRN 12/11/21 11/20/23 mcg-4.5 mcg/actuation aerosol inhaler (Symbicort) lidocaine 5 % topical patch 1 patch topical Q24H #15 ea 05/25/23 11/20/23 (Lidoderm) roflumilast 500 mcg tablet 500 mcg PO DAILY #90 tabs 09/13/23 11/20/23 cyclobenzaprine 10 mg tablet 10 mg PO TID PRN 11/20/23 11/20/23 magnesium oxide 400 mg (241.3 mg 400 mg PO DAILY 11/20/23 11/20/23 magnesium) tablet omeprazole 40 mg capsule,delayed 40 mg PO DAILY 11/20/23 11/20/23 release oxycodone 10 mg tablet,crush 10 mg PO Q12H PRN 11/20/23 11/20/23 resistant,extended release 12 hr (OxyContin) prochlorperazine maleate 10 mg 10 mg PO Q6H PRN 11/20/23 11/20/23 tablet sucralfate 1 gram tablet 1 g PO TID PRN 11/20/23 11/20/23 Previous Rx's Medication Instructions Recorded lidocaine 5 % topical patch 1 patch topical Q24H #15 ea 05/25/23 (Lidoderm) roflumilast 500 mcg tablet 500 mcg PO DAILY #90 tabs 09/13/23 Allergies Allergy/AdvReac Type Severity Reaction Status Date / Time Iodinated Contrast Media AdvReac Unknown screws up Unverified 11/20/23 08:54 my creatinine General Stated Complaint: Nausea/Vomit/Diar SOCORRO: 3 Exam Narrative Exam Narrative: Review of Systems: All systems reviewed & are unremarkable except as noted in HPI and below ill appearing NCAT PERRL, normal conjunctiva dry mucus membranes RRR Unlabored respiratory effort, clear bilaterally port in place Nondistended abdomen , soft, non tender Extremities w/o deformity, no cyanosis, no edema No rashes or lesions. no focal neurologic deficits Appropriate mood and affect Course Vital Signs Vital signs: Vital Signs Temperature 36.4 C 11/20/23 08:50 Pulse 80 11/20/23 08:50 Respiratory Rate 15 11/20/23 08:50 Blood Pressure 102/57 L 11/20/23 08:50 Pulse Oximetry 95 11/20/23 08:50 Temperature 36.4 C 11/20/23 08:50 Temperature Source Temporal Artery Scan 11/20/23 08:50 Pulse 75 11/20/23 12:16 Pulse 72 11/20/23 12:16 Respiratory Rate 14 11/20/23 12:16 Respiratory Effort Normal 11/20/23 08:53 Blood Pressure 119/71 11/20/23 12:16 Blood Pressure Mean 83 11/20/23 12:16 Blood Pressure Position Sitting 11/20/23 08:50 Pulse Oximetry 95 11/20/23 08:50 Oxygen Delivery Method Room Air 11/20/23 08:50 Oxygen Flow Rate 0 11/20/23 08:50 Pain Level 7 11/20/23 08:50 Lab/Test Results Lab/Test Results: Laboratory Tests Range/Units 11/20/23 09:30 WBC (4.4-10.8) 10^3/uL 4.53 RBC (4.36-5.78) 10^6/uL 3.23 L Hgb (13.5-17.5) g/dL 10.2 L Hct (40.0-50.0) % 31.4 L MCV (80-95) fL 97 H MCH (27.0-33.0) pg 31.6 MCHC (32.0-36.0) % 32.5 RDW (11.8-14.1) % 16.7 H Plt Count (130-400) 10^3/uL 237 MPV (8.0-11.0) fL 9.1 Immature Gran % % 0.4 Neutrophils % % 80.2 Lymphocytes % % 4.4 Monocytes % % 13.9 Eosinophils % % 0.4 Basophils % % 0.7 Nucleated RBC % (0.0-0.3) % 0.0 Absolute Neutrophils (1.2-6.7) 10^3/uL 3.63 Absolute Lymphocytes (1.2-3.4) 10^3/uL 0.20 L Absolute Monocytes (0.1-0.8) 10^3/uL 0.63 Absolute Eosinophils (0.0-0.7) 10^3/uL 0.02 Absolute Basophils (0.0-0.2) 10^3/uL 0.03 Sodium (136-145) mmol/L 135 L Potassium (3.5-5.1) mmol/L 4.2 Chloride (98-107) mmol/L 100 Carbon Dioxide (21.0-32.0) mmol/L 29.1 Anion Gap (3-11) mmol/L 5.9 BUN (7-18) mg/dL 17 Creatinine (0.70-1.30) mg/dL 1.0 Est GFR (CKD-EPI 2020) (mL/min/1.73m2) 84.05 Glucose (74-106) mg/dL 172 H Calcium (8.5-10.1) mg/dL 9.2 Magnesium (1.8-2.4) mg/dL 1.7 L Total Bilirubin (0.2-1.0) mg/dL 0.46 AST (15-37) U/L 15 ALT (16-63) U/L 16 Alkaline Phosphatase (46-116) U/L 100 Creatine Kinase (39-308) U/L 28 L Total Protein (6.4-8.2) g/dL 6.4 Albumin (3.4-5.0) g/dL 2.5 L Procalcitonin ng/mL 0.1 Medical Decision Making Emergent evaluation of poor oral intake. Patient is a stage III cancer, recently finished chemotherapy and radiation treatments. His symptoms of vomiting and diarrhea have subsided, but over the last week has had generally poor oral intake. I am concerned for dehydration, electrolyte derangement. His symptoms of abdominal pain are concerning for progressing malignancy, perforation, obstruction. I did talk to the patient's radiation oncologist who is sending the patient to the emergency department for further evaluation. He has requested CT imaging to evaluate this ongoing and progressively worsening. I will resuscitate with IV fluids and get imaging today. Lab work reviewed. Anemia is at baseline. There is no neutropenia. Electrolytes do not have significant derangement. Mild decrease in magnesium level. Low procalcitonin is negative, so I doubt serious bacterial illness. Unfortunately the CT scan has gone down and I am unable to get imaging. I did discuss with [facility] and attempt to transfer the patient there for further management and workup. However at this time they do not have capacity to accept the transfer. On reevaluation of the patient, he looks significantly better after IV fluid resuscitation and is now tolerating p.o. He is requesting to go home. Given his significant clinical improvement, I do feel that he is able to go home. I did discuss with the GROUP HOME COUNSELOR at [facility], the patient has a follow-up with her next week. If he is still feeling bad at that time she will order outpatient imaging to further evaluate and reassess this pain. Patient understands return precautions, hydration instructions and will be discharged in good condition. Medical Records Medical records reviewed: Yes I reviewed the patient's medical records. Lab Data Lab results reviewed: Yes I reviewed the patient's lab results. Quality:SDOH Health Related Social Needs: No Data to Display PFSH All Active Problems Volume depletion (Acute) COPD (chronic obstructive pulmonary disease) (Chronic) Personal history of nicotine dependence (Acute) Atherosclerosis of coronary artery without angina pectoris (Acute) Primary malignant neoplasm of left lung (Acute) Acquired pes planus of right foot (Acute) Disorder of the skin and subcutaneous tissue, unspecified (Acute) Increased frequency of urination (Acute) Nausea (Acute) Dizziness and giddiness (Acute) Pain, joint, ankle and foot (Acute) Chronic renal impairment (Acute) Umbilical hernia without obstruction and without gangrene (Acute) Hypertensive disorder (Chronic) Neuropathy (Acute) Obstructive sleep apnea syndrome in adult (Acute) Insomnia (Acute) Acute stress disorder (Acute) Obesity (Chronic) Hyperlipidemia (Acute) Type 2 diabetes mellitus without complication (Acute) Medical History COPD (chronic obstructive pulmonary disease) Emphysematous bleb of lung Family History Mother Cancer Father Cancer Social History Smoking/Tobacco Use Status: Former Tobacco Use Quit Date: 05/27/01 Smoking risk assessment performed?: Yes Alcohol Intake: never Drug use: Never Substance use type: does not use Housing: apartment Do you feel safe at home: Yes Do you feel safe in your relationship?: Yes
== END 2023-11-20 12:26 | disposition home or self-care (01) ==
PROVIDERS: Emergency Provider Emergency Medicine; PCP Family Medicine
DX: R11.2 Nausea with vomiting, unspecified (principal); R19.7 Diarrhea, unspecified; R30.9 Painful micturition, unspecified; E86.9 Volume depletion, unspecified; Z79.630 Long term (current) use of alkylating agent
CPT/HCPCS: 36415; 80053; 82550; 84145; 96361; 96374; 96375; 99284; 81003; 83735; 85025; 99283; J1642; J2270; J2405

== ENCOUNTER 2023-11-27 02:10 | Outpatient (RCR) | payer OTHER, SELFPAY ==
[2023-11-27] MEDS: Normal Saline Flush 10 ML SYR IVP (07:07)
[2023-11-27 07:46] LABS: Absolute Basophil Count 0.08 10^3/uL (0.0-0.2); Absolute Eosinophil Count 0.12 10^3/uL (0.0-0.7); Absolute Lymphocyte Count 0.41 10^3/uL (1.2-3.4); Absolute Monocyte Count 1.22 10^3/uL (0.1-0.8); Absolute Neutrophil Count 8.03 10^3/uL (1.2-6.7); Basophils % 0.8 %; Eosinophils % 1.2 %; HCT 33.2 % (40.0-50.0); HGB 10.7 g/dL (13.5-17.5); Lymphocytes % 4.1 %; MCH 31.3 pg (27.0-33.0); MCHC 32.2 % (32.0-36.0); MCV 97 fL (80-95); MPV 8.9 fL (8.0-11.0); Monocytes % 12.2 %; Neutrophils % 80.7 %; Platelet Count 417 10^3/uL (130-400); RBC 3.42 10^6/uL (4.36-5.78); RDW 17.4 % (11.8-14.1); RDW-SD 61.1 fL; WBC 9.96 10^3/uL (4.4-10.8)
[2023-11-27 08:11] LABS: ALT 22 U/L (16-63); AST 17 U/L (15-37); Albumin 2.6 g/dL (3.4-5.0); Alkaline Phosphatase 110 U/L (46-116); Anion Gap 5.4 mmol/L (3-11); BUN 13 mg/dL (7-18); CO2 29.6 mmol/L (21.0-32.0); CREATININE 1.2 mg/dL (0.70-1.30); Calcium 9.4 mg/dL (8.5-10.1); Chloride 100 mmol/L (98-107); Estimated GFR 67.53 (mL/min/1.73m2); Glucose 135 mg/dL (74-106); Magnesium 1.5 mg/dL (1.8-2.4); Potassium 4.3 mmol/L (3.5-5.1); Sodium 135 mmol/L (136-145); Total Protein 6.3 g/dL (6.4-8.2)
== END 2023-12-25 23:59 | disposition home or self-care (01) ==
LOC: INF 02:10
PROVIDERS: PCP Family Medicine; Visit Provider Internal Medicine Medical Oncology
DX: C15.5 Malignant neoplasm of lower third of esophagus (principal); Z45.2 Encounter for adjustment and management of vascular access device
CPT/HCPCS: 36591; 80053; 83735; 85025

== ENCOUNTER 2024-01-13 03:11 | Outpatient (RCR) | payer OTHER, SELFPAY ==
[2024-01-13] MEDS: Normal Saline Flush 10 ML SYR IVP (11:34)
[2024-01-13 11:51] LABS: Abs Immature Grans 0.01 10^3/uL (0.0-0.06); Absolute Eosinophil Count 0.45 10^3/uL (0.0-0.7); Absolute Lymphocyte Count 0.42 10^3/uL (1.2-3.4); Absolute Monocyte Count 0.78 10^3/uL (0.1-0.8); Absolute Neutrophil Count 4.37 10^3/uL (1.2-6.7); Basophils % 1.6 %; Eosinophils % 7.3 %; HCT 36.6 % (40.0-50.0); HGB 11.5 g/dL (13.5-17.5); Immature Grans % 0.2 %; Lymphocytes % 6.9 %; MCH 32.4 pg (27.0-33.0); MCHC 31.4 % (32.0-36.0); MCV 103 fL (80-95); MPV 8.9 fL (8.0-11.0); Monocytes % 12.7 %; Neutrophils % 71.3 %; Platelet Count 299 10^3/uL (130-400); RBC 3.55 10^6/uL (4.36-5.78); RDW-SD 61.7 fL; WBC 6.13 10^3/uL (4.4-10.8)
[2024-01-13 12:10] LABS: ALT 42 U/L (16-63); AST 33 U/L (15-37); Alkaline Phosphatase 124 U/L (46-116); Anion Gap 9.6 mmol/L (3-11); BUN 16 mg/dL (7-18); Bilirubin, Total 0.28 mg/dL (0.2-1.0); CO2 27.4 mmol/L (21.0-32.0); Calcium 9.2 mg/dL (8.5-10.1); Chloride 102 mmol/L (98-107); Estimated GFR 84.05 (mL/min/1.73m2); Glucose 110 mg/dL (74-106); Magnesium 1.6 mg/dL (1.8-2.4); Potassium 4.5 mmol/L (3.5-5.1); Sodium 139 mmol/L (136-145); Total Protein 6.6 g/dL (6.4-8.2)
== END 2024-01-25 23:59 | disposition home or self-care (01) ==
LOC: INF 03:11
PROVIDERS: PCP Family Medicine; Visit Provider Internal Medicine Medical Oncology
DX: C15.5 Malignant neoplasm of lower third of esophagus (principal); Z45.2 Encounter for adjustment and management of vascular access device
CPT/HCPCS: 36591; 80053; 83735; 85025

== ENCOUNTER 2024-04-13 11:44 | Outpatient (CLI) | payer BC, MEDICARE, SELFPAY ==
[2024-04-13 12:37] LABS: Abs Immature Grans 0.01 10^3/uL (0.0-0.06); Absolute Basophil Count 0.09 10^3/uL (0.0-0.2); Absolute Lymphocyte Count 0.61 10^3/uL (1.2-3.4); Absolute Monocyte Count 0.46 10^3/uL (0.1-0.8); Absolute Neutrophil Count 4.56 10^3/uL (1.2-6.7); Basophils % 1.5 %; Eosinophils % 1.7 %; HCT 45.1 % (40.0-50.0); HGB 14.2 g/dL (13.5-17.5); Immature Grans % 0.2 %; Lymphocytes % 10.5 %; MCH 31.8 pg (27.0-33.0); MCHC 31.5 % (32.0-36.0); MCV 101 fL (80-95); MPV 9.1 fL (8.0-11.0); Monocytes % 7.9 %; Neutrophils % 78.2 %; Platelet Count 243 10^3/uL (130-400); RBC 4.46 10^6/uL (4.36-5.78); RDW 14.9 % (11.8-14.1); RDW-SD 55.7 fL; WBC 5.83 10^3/uL (4.4-10.8)
[2024-04-13 12:49] LABS: ALT 28 U/L (16-63); AST 20 U/L (15-37); Albumin 3.5 g/dL (3.4-5.0); Alkaline Phosphatase 99 U/L (46-116); Anion Gap 6.8 mmol/L (3-11); BUN 18 mg/dL (7-18); Bilirubin, Total 0.55 mg/dL (0.2-1.0); CO2 30.2 mmol/L (21.0-32.0); CREATININE 1.3 mg/dL (0.70-1.30); Calcium 9.6 mg/dL (8.5-10.1); Chloride 105 mmol/L (98-107); Estimated GFR 60.96 (mL/min/1.73m2); Glucose 196 mg/dL (74-106); Magnesium 1.9 mg/dL (1.8-2.4); Potassium 4.5 mmol/L (3.5-5.1); Sodium 142 mmol/L (136-145); Total Protein 6.9 g/dL (6.4-8.2)
== END 2024-04-13 11:45 | disposition home or self-care (01) ==
LOC: LBO 12:02
PROVIDERS: PCP Family Medicine; Visit Provider Internal Medicine Medical Oncology
DX: C15.5 Malignant neoplasm of lower third of esophagus (principal)
CPT/HCPCS: 36415; 80053; 83735; 85025

== ENCOUNTER 2024-06-21 20:50 | Observation (INO) | payer MEDICARE, SELFPAY ==
[2024-06-21] VITALS (28 sets, daily range): BP systolic 127–170; BP diastolic 64–85; PULSE 61–77; RESP 14–47; TEMP 36.8; O2SAT 95–99
--- NOTE | 2024-06-21 20:45 | RT.EKG_ITS ---
APPROVED REPORT Exam: Resting ECG Reason for Exam: short of breath Patient Location: E HR:61 bpm ECG Measurements Heart Rate [address] 153 P -12 QRSd 88 QRS 15 QT 413 T 1 QTc 417 Conclusion Sinus rhythm. 61 normal axis no stemi
--- NOTE | 2024-06-21 20:59 | ED.GENADUL_ITS ---
Discharge Plan Disposition Patient Disposition: Admit to [facility] Discharge Details Clinical Impression: Pleural effusion on left Primary Care Provider: Froilan Marcos ED Provider: Esthela Forbes Home Meds and New Rx's Prescriptions: No Action budesonide-formoterol [Symbicort] 160-4.5 mcg/actuation HFA aerosol inhaler 2 puff inhalation BID PRN albuterol sulfate 90 mcg/actuation HFA aerosol inhaler 2 puff inhalation 6XD bupropion HCl 300 mg tablet extended release 24 hr 300 mg PO QAM ipratropium-albuterol 0.5 mg-3 mg(2.5 mg base)/3 mL solution for nebulization 3 ml inhalation QID PRN lisinopril 2.5 mg tablet 2.5 mg PO DAILY metformin 1,000 mg tablet 1,000 mg PO BID metoprolol tartrate 25 mg tablet 100 mg PO BID rosuvastatin 20 mg tablet 20 mg PO DAILY Stiolto Respimat 2.5-2.5 mcg/actuation mist 2 puff inhalation DAILY roflumilast 500 mcg tablet See Rx Instructions .ROUTE .COMPLEX Qty: 30 12RF Dose Instruction: TAKE ONE TABLET BY MOUTH EVERY DAY; START THIS DOSE AFTER FINISHING THE 250 MCG DOSE Rx Instructions: TAKE ONE TABLET BY MOUTH EVERY DAY; START THIS DOSE AFTER FINISHING THE 250 MCG DOSE lidocaine [Lidoderm] 5 % adhesive patch,medicated 1 patch Topical Q24H Qty: 15 0RF omeprazole 40 mg capsule,delayed release(DR/EC) 40 mg PO DAILY Patient Comments: TAKE ONE CAPSULE BY MOUTH EVERY DAY cyclobenzaprine 10 mg tablet 10 mg PO TID PRN HPI General Date/Time Provider Initiated Documentation: 06/21/24 20:54 . HPI Narrative: Shad is a 64 year old male who presents to the emergency department today for evaluation of shortness of breath. He was referred to the ED for further evaluation by heme-onc fellow, who called and gave report prior to pt's arrival. He reports that he has had increasing shortness of breath, heaviness on the L side of his chest, clear sputum production with cough, frothy mucus in his mouth is blood-tinged, and bouts of dizziness/fuzzy vision over the course of day. This does not respond to nebulizer treatments. He reports that he was worked up for a possible stroke on 06/10/2024 after he went to bed with a headache and slept from 10 PM to 1 PM the next day and woke up with dizziness/not feeling right. He has had episodes of headaches, and episodes of blurred vision with dizziness since then. He was diagnosed with pleural effusion and pericardial effusion on 06/15/2024. Denies recent fever/chills, congestion, sore throat, nausea/vomiting, abdominal pain, change in bowel or bladder function, blood in stools, calf redness/swelling, pedal edema. No recent surgeries or immobility. He does have a history of PE and pleural effusions have had to be drained in the past. Past medical history is significant for L lung neoplasm and esophageal cancer, COPD, ASCVD, HTN, HLD, T2DM. Physical exam remarkable for mild dyspnea while conversing. No cough during exam. Inspiratory and expiratory wheezes in all lung kerns. Normal heart sounds, regular rate and rhythm. Abdomen soft, nondistended, nontender to palpation with no rigidity or guarding. No calf swelling/redness/tenderness with palpation. No pedal edema or JVD. D/dx includes but is not limited to: PE, CHF, ACS, heart failure, pleural effusions, worsening neoplasm, COPD exacerbation, electrolyte imbalance I independently interpreted the following tests: CBC, CMP, serial troponins reassuring. VBG shows pH 7.34 with pCO2 55. Mild hypomagnesemia noted, 1.6. BNP elevated at 565. EKG performed, normal sinus rhythm rate 61, no changes consistent with acute ischemia, normal intervals. CTA performed, no evidence of PE, however patient does have large left pleural effusion. Compression deformities in the T8-T9 vertebral bodies are consistent with patient's reported spinal infection this December which required biopsies. While in the emergency department, Shad received magnesium for supplementation. Symptoms most likely due to large pleural effusion. Discussed case with Dr. Elizabeth, [facility] hospitalist. Patient to be admitted to [facility] for diagnostic and therapeutic thoracentesis tomorrow. Related Data Home Medications ?Medication ?Instructions ?Recorded ?Confirmed albuterol sulfate 90 mcg/actuation 2 puff inhalation 6XD 05/01/21 06/21/24 aerosol inhaler bupropion HCl 300 mg 24 hr tablet, 300 mg PO QAM 05/01/21 06/21/24 extended release ipratropium 0.5 mg-albuterol 3 mg 3 ml inhalation QID PRN 05/01/21 06/21/24 (2.5 mg base)/3 mL nebulization soln lisinopril 2.5 mg tablet 2.5 mg PO DAILY 05/01/21 06/21/24 metformin 1,000 mg tablet 1,000 mg PO BID 05/01/21 06/21/24 metoprolol tartrate 25 mg tablet 100 mg PO BID 05/01/21 06/21/24 rosuvastatin 20 mg tablet 20 mg PO DAILY 05/01/21 06/21/24 tiotropium 2.5 mcg-olodaterol 2.5 2 puff inhalation DAILY 05/01/21 06/21/24 mcg/actuation mist for inhalation (Stiolto Respimat) budesonide-formoterol HFA 160 2 puff inhalation BID PRN 12/11/21 06/21/24 mcg-4.5 mcg/actuation aerosol inhaler (Symbicort) lidocaine 5 % topical patch 1 patch topical Q24H #15 ea 05/25/23 06/21/24 (Lidoderm) cyclobenzaprine 10 mg tablet 10 mg PO TID PRN 11/20/23 06/21/24 omeprazole 40 mg capsule,delayed 40 mg PO DAILY 11/20/23 06/21/24 release roflumilast 500 mcg tablet See Rx Instructions .Route 02/03/24 06/21/24 .COMPLEX #30 tabs Previous Rx's ?Medication ?Instructions ?Recorded lidocaine 5 % topical patch 1 patch topical Q24H #15 ea 05/25/23 (Lidoderm) roflumilast 500 mcg tablet See Rx Instructions .Route 02/03/24 .COMPLEX #30 tabs Allergies Allergy/AdvReac Type Severity Reaction Status Date / Time Iodinated Contrast Media AdvReac Unknown screws up Unverified 06/21/24 21:41 my creatinine General SOCORRO: 3 Review of Systems Narrative: See HPI Exam Const General: cooperative, comfortable, well developed and anxious Nutritional Appearance: average body habitus Orientation: alert and oriented x3 Resp Effort & Inspection: tachypneic and uses accessory muscles Auscultation: wheezes Cardio Rate: regular rate Rhythm: regular rhythm GI Inspection: normal to inspection Palpation: soft, not rigid and nontender Extrem General: no pedal edema and no calf tenderness Medical Decision Making Quality:SDOH Health Related Social Needs: No Data to Display PFSH All Active Problems (Updated 06/21/24 @ 23:36 by Esthela Carlos) Acute hypercapnic respiratory failure (Acute) Pleural effusion on left (Acute) COPD (chronic obstructive pulmonary disease) (Chronic) Personal history of nicotine dependence (Acute) Atherosclerosis of coronary artery without angina pectoris (Acute) Primary malignant neoplasm of left lung (Chronic) Acquired pes planus of right foot (Acute) Disorder of the skin and subcutaneous tissue, unspecified (Acute) Increased frequency of urination (Acute) Nausea (Acute) Dizziness and giddiness (Acute) Pain, joint, ankle and foot (Acute) Chronic renal impairment (Acute) Umbilical hernia without obstruction and without gangrene (Acute) Hypertensive disorder (Chronic) Neuropathy (Acute) Obstructive sleep apnea syndrome in adult (Acute) Insomnia (Acute) Acute stress disorder (Acute) Obesity (Chronic) Hyperlipidemia (Acute) Type 2 diabetes mellitus without complication (Acute) Medical History COPD (chronic obstructive pulmonary disease) Emphysematous bleb of lung Family History Mother Cancer Father Cancer Social History Smoking/Tobacco Use Status: Former Tobacco Use Quit Date: 05/27/01 Smoking risk assessment performed?: Yes Alcohol Intake: never Drug use: Never Substance use type: does not use Housing: apartment Do you feel safe at home: Yes Do you feel safe in your relationship?: Yes
[2024-06-21 21:07] LABS: Abs Immature Grans 0.01 10^3/uL (0.0-0.06); Absolute Basophil Count 0.08 10^3/uL (0.0-0.2); Absolute Eosinophil Count 0.28 10^3/uL (0.0-0.7); Absolute Lymphocyte Count 0.75 10^3/uL (1.2-3.4); Absolute Monocyte Count 0.55 10^3/uL (0.1-0.8); Absolute Neutrophil Count 3.61 10^3/uL (1.2-6.7); BE (Venous) 4 mmol/L (-2-3); Basophils % 1.5 %; Eosinophils % 5.3 %; HCO3 (Venous) 30 mmol/L (23-28); HCT 43.5 % (40.0-50.0); HGB 13.9 g/dL (13.5-17.5); Immature Grans % 0.2 %; Lymphocytes % 14.2 %; MCH 33.3 pg (27.0-33.0); MCV 104 fL (80-95); MPV 8.8 fL (8.0-11.0); Monocytes % 10.4 %; Neutrophils % 68.4 %; O2 Sat (Venous) 34 %; Platelet Count 224 10^3/uL (130-400); RBC 4.17 10^6/uL (4.36-5.78); RDW 15.2 % (11.8-14.1); RDW-SD 59.3 fL; TCO2 (Venous) 27 mmol/L (24-29); WBC 5.28 10^3/uL (4.4-10.8); pCO2 (Venous) 55 mmHg (41-51); pH (Venous) 7.34 (7.31-7.41); pO2 (Venous) 23 mmHg
[2024-06-21 21:18] LABS: Magnesium 1.6 mg/dL (1.8-2.4)
--- NOTE | 2024-06-21 21:30 | DI.CT_ITS ---
Exam(s) CT CHEST PE CTA EXAM: CT CHEST PE CTA CLINICAL HISTORY: SOB, cough, known pleural effusion. TECHNIQUE: Imaging Protocol: Axial CT angiography was performed with multi-slice acquisition and mu lti-planar and/or 3D reconstructions. Lung Computer Aided Detection (CAD) was utilized. CONTRAST MATERIAL: Intravenous: Omnipaque 350 contrast volume:100 mL COMPARISON: CT CT CHEST PE ABD PELVIS W from 05/25/2023 FINDINGS: Tracheobronchial tree: Patent where visualized. No bronchiectasis. There is mild bronchial wall thic kening present. Pulmonary parenchyma: Mild centrilobular emphysematous changes are present. There is a large left pl eural effusion with a subjacent infiltrate which may represent atelectasis or pneumonia. There is a small right pleural effusion with subjacent infiltrate. Pulmonary Arteries: No evidence of filling defect to suggest pulmonary emboli. Mediastinum and Domonique: There is no dominant mediastinal adenopathy. There is diffuse thickening of th e wall of the esophagus through its entire length. Visualized thyroid gland: Unremarkable. Pleura: There is no pneumothorax. Heart: The heart is not dilated. Two vessel coronary artery calcification is seen. There is a perica rdial effusion which is small to moderate in size. Aorta: Thoracic aorta non-dilated. No evidence of dissection. Atherosclerotic calcification is presen t Upper abdomen: Unremarkable. Soft tissues: Unremarkable. Bones: Within normal limits for the patient's age.There are old healed right rib fractures. Since th e prior examination there has been loss of volume of the T8 and T9 vertebral bodies with increased sc lerosis and irregularity of the inferior endplate of T8 in the superior endplate of T9. IMPRESSION: 1. No evidence of pulmonary embolism, thoracic aortic dissection or aneurysm. 2. Interval loss of volume in sclerosis of the T8 and T9 vertebral bodies. Differential consideratio ns should include metastatic disease, fracture or infection. Please correlate with the patient's cli nical history. MRI of the thoracic spine without and with contrast should be considered for further evaluation. 3. Bilateral pleural effusions. Large left pleural effusion and small right pleural effusion. Subja cent infiltrates which may represent atelectasis or pneumonia. 4. Old healed right rib fractures. Unexpected findings RADIATION DOSE DELIVERED: 94.05mGy.cm Total DLP DATA REPOSITORY: All CT scans at this facility are submitted to the National Radiology Data Registry (NRDR) Dose Index Registry (DIR) with the [employer] (ACR). RADIATION OPTIMIZATION: All CT scans at this facility use at least one of these dose optimization te chniques: automated exposure control; mA and/or kV adjustment per patient size (includes targeted exa ms where dose is matched to clinical indication); or iterative reconstruction.
[2024-06-21 21:31] LABS: ALT 29 U/L (16-63); AST 25 U/L (15-37); Albumin 3.5 g/dL (3.4-5.0); Alkaline Phosphatase 107 U/L (46-116); Anion Gap 4.5 mmol/L (3-11); BUN 16 mg/dL (7-18); CO2 31.5 mmol/L (21.0-32.0); CREATININE 1.2 mg/dL (0.70-1.30); Calcium 9.1 mg/dL (8.5-10.1); Chloride 106 mmol/L (98-107); Estimated GFR 67.11 (mL/min/1.73m2); Glucose 129 mg/dL (74-106); NT-proBNP 565 pg/mL (<300); Sodium 142 mmol/L (136-145); Total Protein 6.6 g/dL (6.4-8.2); Troponin I 34 ng/L (<or=76)
[2024-06-21] MEDS: Omnipaque 350 MG/ML 100 ML BTL IJ (22:04)
[2024-06-21] MEDS: Normal Saline - Diluent 50 ML VIAL IJ (22:05)
[2024-06-21 22:10] LABS: Lab Add On Test DONE
[2024-06-21 22:25] LABS: Troponin I 37 ng/L (<or=76)
--- NOTE | 2024-06-21 22:26 | DI.VRAD_ITS ---
PROCEDURE INFORMATION: Exam: CTA Chest With Contrast Exam date and time: 06/21/2024 10:00 PM Age: 64 years old Clinical indication: Cough and shortness of breath; Patient HX: SOB, cough, known pleural effusions TECHNIQUE: Imaging protocol: Computed tomographic angiography of the chest with contrast. Exam focused on the arteries. 3D rendering (Not supervised by radiologist): MIP and/or 3D reconstructed images were created by the technologist. COMPARISON: CT CHEST PE ABD PELVIS W 05/25/2023 5:05 AM FINDINGS: Pulmonary arteries: No evidence for pulmonary embolism. Aorta: Unremarkable. No aortic aneurysm. No aortic dissection. Lungs: Bilateral lower lobe subsegmental atelectatic changes. Pleural spaces: Large left pleural effusion. Heart: Unremarkable. No cardiomegaly. No pericardial effusion. Lymph nodes: Unremarkable. No enlarged lymph nodes. Bones/joints: Compression fracture is identified involving the T8 and T9 vertebral bodies which also sclerotic in nature. These findings are not seen on the prior study dated 05/25/2023. The possibility of a metastatic involvement must be considered. Does this patient have a history of primary malignancy? Soft tissues: Unremarkable. IMPRESSION: 1. No evidence for pulmonary embolism. 2. Large left pleural effusion. 3. Compression deformities involving the T8 and T9 vertebral bodies which are also sclerotic in appearance. This was not seen on the prior CT scan dated 05/25/2023. The possibility of metastatic/neoplastic process must be considered. Does this patient have a primary history of malignancy? Dictated and Authenticated by: Jairo Escobar MD. Ordering:SHAKEEL Proctor MD
[2024-06-21 22:32] LABS: TSH (W/Ref FT4) 2.51 uIU/mL (0.36-3.74)
[2024-06-21] MEDS: Magnesium Oxide 400 MG TAB PO (23:14)
--- NOTE | 2024-06-21 23:18 | W.PM.HP.N ---
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 He will have aggressive treatment of his COPD as exacerbated with oxygen supplementation as needed. Also, therapeutic thoracentesis will be performed by surgeon in consultation. He will long-term follow-up with [facility] with ongoing hematology-oncology care for possible recurrent small cell lung cancer. He is a full code. (2) Pleural effusion on left: Start date: 06/21/24 Status: Acute Assessment and plan: Surgery consulted for therapeutic thoracentesis. Heparin for DVT prophylaxis was held. Patient did not have PE with CT evaluation upon presentation. (3) Hypomagnesemia: Start date: 06/21/24 Status: Acute Assessment and plan: IV supplement and follow-up lab. Oral supplement if needed. (4) COPD (chronic obstructive pulmonary disease): Status: Chronic Assessment and plan: Solu-Medrol with aggressive nebulizer treatment. Option supplementation as needed. This is a chronic issue. 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 Follow-up with [facility] hematology-oncology. (6) Type 2 diabetes mellitus without complication: Status: Chronic Assessment and plan: Glucometer measurements before meals and at bedtime with sensitive sliding scale short acting insulin coverage. Hold outpatient medical therapy for now. History of Present Illness History of Present Illness Chief Complaint: Shortness of breath with left chest heaviness. Narrative: This is a 64-year-old male patient sent to the ED by his hematology-oncology fellow who called and signed out to the ED provider. The patient was having increased shortness of breath with blood-tinged sputum with a frothy mucus sputum production he also had. He also had bouts of dizziness and blurred vision. He had workup for stroke which was negative and mid May. Patient has been having a recurrent pleural effusion which has been drained multiple times in the past. He has a history of small cell lung cancer diagnosed over a decade ago possibly recurring and recent diagnosis of esophageal cancer treated and in remission over the last 6 months. He has ongoing treatment at [facility]. In the ED he was evaluated and found to have a left large pleural effusion with no fever and no elevated white count. He also has COPD exacerbation, supposedly continuing to smoke though there is documentation of him quitting in 2001. He was admitted for observation and surgical consultation for thoracentesis in the morning which would be therapeutic and less diagnostic. He also appeared to have COPD exacerbation without complications and this will be treated aggressively while an inpatient. He is not requiring oxygen presently. His long-term medical problems otherwise appear to be stable at baseline. He did have a CTA to rule out PE. This was ordered at the request of the hematology-oncology fellow because of his history of cancer and recurrent pleural effusion along with worsening shortness of breath with risk of PE. Dr. Allison was called in consultation for thoracentesis in the morning and patient will not be placed on heparin prophylaxis for thromboembolic events until after seen by surgery. [facility] his effusion and pericardial effusion with no need to update echocardiogram this hospitalization. These issues will be followed up with his PCP and [facility]. He is a full code. Review of Systems Narrative: Patient denies any fever or chills, increased upper airway congestion or sore throat and he had no abdominal symptoms denying vomiting discomfort or nausea and vomiting. He had no change in bowel habits. He has had no complaints. His neurological complaints with stable with dizziness and headache. Otherwise, 13 point review of systems otherwise unrevealing or stable. [facility] All Active Problems (Updated 06/21/24 @ 23:44 by Sanjiv Elizabeth) Hypomagnesemia (Acute) Acute hypercapnic respiratory failure (Acute) Pleural effusion on left (Acute) COPD (chronic obstructive pulmonary disease) (Chronic) Personal history of nicotine dependence (Acute) Atherosclerosis of coronary artery without angina pectoris (Acute) Primary malignant neoplasm of left lung (Chronic) Acquired pes planus of right foot (Acute) Disorder of the skin and subcutaneous tissue, unspecified (Acute) Increased frequency of urination (Acute) Nausea (Acute) Dizziness and giddiness (Acute) Pain, joint, ankle and foot (Acute) Chronic renal impairment (Acute) Umbilical hernia without obstruction and without gangrene (Acute) Hypertensive disorder (Chronic) Neuropathy (Acute) Obstructive sleep apnea syndrome in adult (Acute) Insomnia (Acute) Acute stress disorder (Acute) Obesity (Chronic) Hyperlipidemia (Acute) Type 2 diabetes mellitus without complication (Chronic) Medical History COPD (chronic obstructive pulmonary disease) Emphysematous bleb of lung Family History Mother Cancer Father Cancer Social History Smoking/Tobacco Use Status: Former Tobacco Use Quit Date: 05/27/01 Smoking risk assessment performed?: Yes Alcohol Intake: never Drug use: Never Substance use type: does not use Housing: house Do you feel safe at home: Yes Do you feel safe in your relationship?: Yes Meds Allergies and Home Medications Allergies Allergy/AdvReac Type Severity Reaction Status Date / Time Iodinated Contrast Media AdvReac Unknown screws up Unverified 06/21/24 21:41 my creatinine Home Medications ?Medication ?Instructions ?Recorded ?Confirmed ?Type albuterol sulfate 90 mcg/actuation 2 puff inhalation 6XD 05/01/21 06/21/24 History aerosol inhaler bupropion HCl 300 mg 24 hr tablet, 300 mg PO QAM 05/01/21 06/21/24 History extended release ipratropium 0.5 mg-albuterol 3 mg 3 ml inhalation QID PRN 05/01/21 06/21/24 History (2.5 mg base)/3 mL nebulization soln lisinopril 2.5 mg tablet 2.5 mg PO DAILY 05/01/21 06/21/24 History metformin 1,000 mg tablet 1,000 mg PO BID 05/01/21 06/21/24 History metoprolol tartrate 25 mg tablet 100 mg PO BID 05/01/21 06/21/24 History rosuvastatin 20 mg tablet 20 mg PO DAILY 05/01/21 06/21/24 History tiotropium 2.5 mcg-olodaterol 2.5 2 puff inhalation DAILY 05/01/21 06/21/24 History mcg/actuation mist for inhalation (Stiolto Respimat) budesonide-formoterol HFA 160 2 puff inhalation BID PRN 12/11/21 06/21/24 History mcg-4.5 mcg/actuation aerosol inhaler (Symbicort) lidocaine 5 % topical patch 1 patch topical Q24H #15 ea 05/25/23 06/21/24 Rx (Lidoderm) cyclobenzaprine 10 mg tablet 10 mg PO TID PRN 11/20/23 06/21/24 History omeprazole 40 mg capsule,delayed 40 mg PO DAILY 11/20/23 06/21/24 History release roflumilast 500 mcg tablet See Rx Instructions .Route 02/03/24 06/21/24 Rx .COMPLEX #30 tabs Exam Narrative Exam Narrative: General: Patient is thin, appears older than stated age and in no acute distress. He is alert and oriented x 3. HEENT: Normocephalic, eyes with pupils equal and reactive to light symmetrically, extraocular movements intact and sclera anicteric. Oropharynx with slightly dry mucosa and fair dentition. Neck: Supple without JVD. Back: Normal posture without CVA tenderness. Lungs: Decreased aeration over the left more than right with bronchovesicular breath sounds diffusely, scant coarse crackles diffusely with slight expiratory wheeze. Patient is talking comfortably. Heart: Distant heart sounds with regular rate and rhythm. No murmur or gallop appreciated. No rub. Abdomen: Scaphoid contour, soft and nontender to palpation no palpable hepatosplenomegaly. Bowel sounds positive all quadrants. Genitalia/rectal: Exam deferred. Extremities: Without clubbing, cyanosis or pitting edema. Good capillary refill. Skin: Normal color, warm and dry. Neuro: Cranial nerve II to XII gross intact, no focalized motor deficits. No tremor. Psych: Flattened affect with normal mood. No abnormal thought processes. Remote and recent memory grossly intact. Results Imaging Imaging Studies: Exam: CTA Chest With Contrast Exam date and time: 06/21/2024 10:00 PM Age: 64 years old Clinical indication: Cough and shortness of breath; Patient HX: SOB, cough, known pleural effusions COMPARISON: CT CHEST PE ABD PELVIS W 05/25/2023 5:05 AM FINDINGS: Pulmonary arteries: No evidence for pulmonary embolism. Aorta: Unremarkable. No aortic aneurysm. No aortic dissection. Lungs: Bilateral lower lobe subsegmental atelectatic changes. Pleural spaces: Large left pleural effusion. Heart: Unremarkable. No cardiomegaly. No pericardial effusion. Lymph nodes: Unremarkable. No enlarged lymph nodes. Bones/joints: Compression fracture is identified involving the T8 and T9 vertebral bodies which also sclerotic in nature. These findings are not seen on the prior study dated 05/25/2023. The possibility of a metastatic involvement must be considered. Does this patient have a history of primary malignancy? Soft tissues: Unremarkable. IMPRESSION: 1. No evidence for pulmonary embolism. 2. Large left pleural effusion. 3. Compression deformities involving the T8 and T9 vertebral bodies which are also sclerotic in appearance. This was not seen on the prior CT scan dated 05/25/2023. The possibility of metastatic/neoplastic process must be considered. Does this patient have a primary history of malignancy? Labs 06/21/24 21:00 06/21/24 21:00 Labs: Laboratory Results - last 24 hr 06/21/24 06/21/24 06/21/24 20:54 21:00 22:04 WBC 5.28 RBC 4.17 L Hgb 13.9 Hct 43.5 MCV 104 H MCH 33.3 H MCHC 32.0 RDW 15.2 H Plt Count 224 MPV 8.8 Immature Gran % 0.2 Neutrophils % 68.4 Lymphocytes % 14.2 Monocytes % 10.4 Eosinophils % 5.3 Basophils % 1.5 Nucleated RBC % 0.0 Absolute Neutrophils 3.61 Absolute Lymphocytes 0.75 L Absolute Monocytes 0.55 Absolute Eosinophils 0.28 Absolute Basophils 0.08 D-Dimer Cancelled VBG pH 7.34 VBG pCO2 55 H VBG pO2 23 VBG HCO3 30 H VBG Total CO2 27 VBG O2 Saturation 34 VBG Base Excess 4 H Sodium 142 Potassium 4.0 Chloride 106 Carbon Dioxide 31.5 Anion Gap 4.5 BUN 16 Creatinine 1.2 Est GFR (CKD-EPI 2020) 67.11 Glucose 129 H Calcium 9.1 Magnesium 1.6 L Total Bilirubin 0.30 AST 25 ALT 29 Alkaline Phosphatase 107 Troponin I 34 37 NT-Pro-B Natriuret Pep 565 H Total Protein 6.6 Albumin 3.5 TSH 2.51 Add-On Test Request DONE Last Vital Signs Temp 36.8 C 06/21/24 20:52 Pulse 64 06/21/24 22:50 Resp 16 06/21/24 22:50 BP 146/74 H 06/21/24 22:01 Pulse Ox 98 06/21/24 22:50 Time Spent Time spent with Patient: >75 minutes Time was spent: preparing to see the patient(eg.review tests), obtaining and/or reviewing separately otained hiistory, ordering medications,tests, procedures, indepentently interpreting results, counseling the patient and care coordination
[2024-06-22] VITALS (22 sets, daily range): BP systolic 127–164; BP diastolic 66–84; PULSE 66–86; RESP 3–22; TEMP 36.6–37.2; O2SAT 93–98
[2024-06-22 00:04] LABS: Source Nasal/Nares
[2024-06-22 00:32] LABS: COVID-19 PCR Negative (Negative)
[2024-06-22 00:40] LABS: Troponin I 44 ng/L (<or=76)
--- NOTE | 2024-06-22 01:22 | W.PC.ACHO ---
Registration Status: Primary Language: Preferred Language: ED Information & Data Chief Complaint GenMedical 06/21/24 21:08 Chief Complaint GenMedical 06/21/24 20:52 Triage Note Trouble Breathing, stated 06/21/24 20:52 fluid in left lung and around heart, lung and esophageal cancer in remission for about the last 6 months per pt, fluid removed about a month and a half ago Medical / Surgical History (Last Reviewed 06/21/24 @ 23:18 by Sanjiv Elizabeth) COPD (chronic obstructive pulmonary disease) Emphysematous bleb of lung Most Recent Vital Signs Temperature 36.8 C 06/21/24 20:52 Temperature Source Oral 06/21/24 20:52 Pulse 72 06/22/24 00:50 Pulse 72 06/22/24 00:50 Respiratory Rate 22 06/22/24 00:50 Respiratory Effort Normal, Non-Labored 06/21/24 21:12 Respiratory Depth Normal 06/21/24 21:12 Respiratory Pattern Normal 06/21/24 21:12 Blood Pressure 152/66 H 06/22/24 00:30 Blood Pressure Mean 94 06/22/24 00:30 Blood Pressure Position Supine 06/21/24 20:52 Pulse Oximetry 96 06/22/24 00:50 Oxygen Delivery Method Room Air 06/21/24 20:52 Oxygen Flow Rate 0 06/21/24 20:52 Pain Level 6 06/21/24 20:52 Comment left lung 06/21/24 20:52 Allergies Iodinated Contrast Media Adverse Reaction (Unknown, Unverified 06/21/24 21:41) screws up my creatinine Precautions Isolation Standard precaution 06/21/24 21:08 Active Medications Generic Name Dose Route Start Last Admin Trade Name Juhi PRN Reason Stop Dose Admin Iohexol 100 ml 06/21/24 22:15 06/21/24 22:04 Omnipaque 350 Mg/Ml 100 Ml Btl IJ 07/21/24 23:59 100 ml DIRECTED ADAM Administration Sodium Chloride 50 ml 06/21/24 22:15 06/21/24 22:05 Normal Saline - Diluent 50 Ml Vial IJ 50 ml .FOR DI USE ADAM Administration IV IV Catheter Type [Right Peripheral IV Antecubital] IV Catheter Gauge [Right 18 Antecubital] Diagnostics 06/22/24 06/21/24 06/21/24 Range/Units 00:15 23:53 22:04 WBC (4.4-10.8) 10^3/uL RBC (4.36-5.78) 10^6/uL Hgb (13.5-17.5) g/dL Hct (40.0-50.0) % MCV (80-95) fL MCH (27.0-33.0) pg MCHC (32.0-36.0) % RDW (11.8-14.1) % Plt Count (130-400) 10^3/uL MPV (8.0-11.0) fL Immature Gran % % Neutrophils % % Lymphocytes % % Monocytes % % Eosinophils % % Basophils % % Nucleated RBC % (0.0-0.3) % Absolute Neutrophils (1.2-6.7) 10^3/uL Absolute Lymphocytes (1.2-3.4) 10^3/uL Absolute Monocytes (0.1-0.8) 10^3/uL Absolute Eosinophils (0.0-0.7) 10^3/uL Absolute Basophils (0.0-0.2) 10^3/uL D-Dimer VBG pH (7.31-7.41) VBG pCO2 (41-51) mmHg VBG pO2 mmHg VBG HCO3 (23-28) mmol/L VBG Total CO2 (24-29) mmol/L VBG O2 Saturation % VBG Base Excess (-2-3) mmol/L Sodium (136-145) mmol/L Potassium (3.5-5.1) mmol/L Chloride (98-107) mmol/L Carbon Dioxide (21.0-32.0) mmol/L Anion Gap (3-11) mmol/L BUN (7-18) mg/dL Creatinine (0.70-1.30) mg/dL Est GFR (CKD-EPI 2020) (mL/min/1.73m2) Glucose (74-106) mg/dL Calcium (8.5-10.1) mg/dL Magnesium (1.8-2.4) mg/dL Total Bilirubin (0.2-1.0) mg/dL AST (15-37) U/L ALT (16-63) U/L Alkaline Phosphatase (46-116) U/L Troponin I 44 37 (<or=76) ng/L NT-Pro-B Natriuret Pep (<300) pg/mL Total Protein (6.4-8.2) g/dL Albumin (3.4-5.0) g/dL TSH 2.51 (0.36-3.74) uIU/mL COVID-19 Source Nasal/Nares SARS-CoV-2 (PCR) Negative (Negative) Add-On Test Request DONE 06/21/24 06/21/24 Range/Units 21:00 20:54 WBC 5.28 (4.4-10.8) 10^3/uL RBC 4.17 L (4.36-5.78) 10^6/uL Hgb 13.9 (13.5-17.5) g/dL Hct 43.5 (40.0-50.0) % MCV 104 H (80-95) fL MCH 33.3 H (27.0-33.0) pg MCHC 32.0 (32.0-36.0) % RDW 15.2 H (11.8-14.1) % Plt Count 224 (130-400) 10^3/uL MPV 8.8 (8.0-11.0) fL Immature Gran % 0.2 % Neutrophils % 68.4 % Lymphocytes % 14.2 % Monocytes % 10.4 % Eosinophils % 5.3 % Basophils % 1.5 % Nucleated RBC % 0.0 (0.0-0.3) % Absolute Neutrophils 3.61 (1.2-6.7) 10^3/uL Absolute Lymphocytes 0.75 L (1.2-3.4) 10^3/uL Absolute Monocytes 0.55 (0.1-0.8) 10^3/uL Absolute Eosinophils 0.28 (0.0-0.7) 10^3/uL Absolute Basophils 0.08 (0.0-0.2) 10^3/uL D-Dimer Cancelled VBG pH 7.34 (7.31-7.41) VBG pCO2 55 H (41-51) mmHg VBG pO2 23 mmHg VBG HCO3 30 H (23-28) mmol/L VBG Total CO2 27 (24-29) mmol/L VBG O2 Saturation 34 % VBG Base Excess 4 H (-2-3) mmol/L Sodium 142 (136-145) mmol/L Potassium 4.0 (3.5-5.1) mmol/L Chloride 106 (98-107) mmol/L Carbon Dioxide 31.5 (21.0-32.0) mmol/L Anion Gap 4.5 (3-11) mmol/L BUN 16 (7-18) mg/dL Creatinine 1.2 (0.70-1.30) mg/dL Est GFR (CKD-EPI 2020) 67.11 (mL/min/1.73m2) Glucose 129 H (74-106) mg/dL Calcium 9.1 (8.5-10.1) mg/dL Magnesium 1.6 L (1.8-2.4) mg/dL Total Bilirubin 0.30 (0.2-1.0) mg/dL AST 25 (15-37) U/L ALT 29 (16-63) U/L Alkaline Phosphatase 107 (46-116) U/L Troponin I 34 (<or=76) ng/L NT-Pro-B Natriuret Pep 565 H (<300) pg/mL Total Protein 6.6 (6.4-8.2) g/dL Albumin 3.5 (3.4-5.0) g/dL TSH (0.36-3.74) uIU/mL COVID-19 Source SARS-CoV-2 (PCR) (Negative) Add-On Test Request Intake and Output - 24 Hour Total 06/21/24 20:50 thru 06/21/24 20:52 Weight 79.379 kg Falls Risk Assessment History of Falls No History 06/21/24 21:08 Contributing Factors No Factors 06/21/24 21:08 Ambulatory Aids Independent 06/21/24 21:08 Tubes/Lines With any additional score 06/21/24 21:08 Gait Evaluation No gait disturbance 06/21/24 21:08 Fall Total Score 20 06/21/24 21:08 Level of Risk Standard/Low Risk 06/21/24 21:08 Problems (Last Reviewed 06/21/24 @ 23:18 by Sanjiv Elizabeth) Hypomagnesemia (Acute) Acute hypercapnic respiratory failure (Acute) Pleural effusion on left (Acute) COPD (chronic obstructive pulmonary disease) (Chronic) Primary malignant neoplasm of left lung (Chronic) Type 2 diabetes mellitus without complication (Chronic) v v v v v v v v v Sending and/or Receiving Nurses: Please use comment section below to note any information pertinent to the patient hand-off not included above. Information / Comments: Report received from: Case RN, called for report at [phone], RN not available. Case called med surg unit back at [id number] to give this headline writer report 64 year old male who is AAO x 4. patient is ambulatory and independent. [employer] ACC[employer] reports that patient voided while in the ER. Patient has Lung/esophageal Ca that has been in remission for 6 months. Patient has a surgical consult in the ER to determine whether or not fluid around heart and in LLL need to be drained. Trops are rising but still remains very low. CT of chest showed - for PE, Large left pleural effusion. Patient Mg was repleted with PO Mg in ER for a low Mg level. Patient is admitted under OBS status.
[2024-06-22] MEDS: methylPREDNISolone SUCC 125 MG VIAL 60 MG IVP ×3 (02:29→17:48)
[2024-06-22] MEDS: MAGNESIUM SULFATE 2 GM/50 ML BAG IV_INF (02:31)
[2024-06-22] MEDS: Albuterol/Ipratropium 3 ML UPD VIAL UPD ×4 (06:21→23:55)
[2024-06-22] MEDS: Acetaminophen 325 MG TAB PO (06:53)
[2024-06-22] MEDS: Pantoprazole 40 MG TABCR PO (06:53)
[2024-06-22 07:08] LABS: HCT 44.6 % (40.0-50.0); HGB 14.5 g/dL (13.5-17.5); MCH 33.3 pg (27.0-33.0); MCHC 32.5 % (32.0-36.0); MCV 102 fL (80-95); MPV 9.5 fL (8.0-11.0); Platelet Count 231 10^3/uL (130-400); RBC 4.36 10^6/uL (4.36-5.78); RDW 14.8 % (11.8-14.1); RDW-SD 56.6 fL; WBC 5.38 10^3/uL (4.4-10.8)
[2024-06-22 07:30] LABS: ALT 28 U/L (16-63); AST 24 U/L (15-37); Albumin 3.6 g/dL (3.4-5.0); Alkaline Phosphatase 123 U/L (46-116); Anion Gap 7.3 mmol/L (3-11); BUN 14 mg/dL (7-18); Bilirubin, Total 0.35 mg/dL (0.2-1.0); CO2 29.7 mmol/L (21.0-32.0); CREATININE 1.1 mg/dL (0.70-1.30); Calcium 9.6 mg/dL (8.5-10.1); Chloride 105 mmol/L (98-107); Glucose 157 mg/dL (74-106); Magnesium 2.1 mg/dL (1.8-2.4); Potassium 4.4 mmol/L (3.5-5.1); Sodium 142 mmol/L (136-145); Total Protein 6.8 g/dL (6.4-8.2)
[2024-06-22] MEDS: Budesonide/Formoterol 160/4.5 6 GM 60 PUFF INH IH ×2 (09:24→23:59)
[2024-06-22] MEDS: Metoprolol 50 MG TAB 100 MG PO ×2 (10:07→20:38)
[2024-06-22] MEDS: Cyclobenzaprine 10 MG TAB PO ×2 (10:07→21:54)
[2024-06-22] MEDS: buPROPion-XL 150 MG TABCR 300 MG PO (10:07)
[2024-06-22] MEDS: Lisinopril 2.5 MG TAB PO (10:07)
[2024-06-22] MEDS: Lidocaine 5% Patch 1 PATCH TP (10:07)
[2024-06-22] MEDS: Roflumilast 500 MCG TAB PO (10:07)
[2024-06-22] MEDS: Insulin Aspart 300 UNITS/3 ML PEN SC ×3 (10:09→22:52)
[2024-06-22] MEDS: Normal Saline Flush 10 ML SYR IVP ×2 (10:10→20:42)
--- NOTE | 2024-06-22 13:20 | W.NUTRFU ---
Date of service: 06/22/24 Time of Service: 10:15 Nutrition Note NOTE: Calvin is 64yo being treated for hypomagnesemia (repleted and wnl today), acute resp failure with a hx of COPD and small cell lunc carcinoma. HAs been managing DMII for many years No recent A!C in chart. Takes metformin as only diabetes med at home. Current GFR 74, albumin and total protein wnl. wt stable although he states he doesn eat a lot - skips breakfast most days glucose elevated more so with steroids ordered this admission. pt declines education - no questions. Will monitor intake, labs/glucose Time Spent in Nutritional Counseling and Treatment: 5 minutes
--- NOTE | 2024-06-22 14:08 | PDOC.CMIN ---
Date of service: 06/22/24 Time of Service: 14:09 Care Management Initial Assmt Initial Assessment Reason for Hospitalization: Left Pleural Effusion, COPD Functional Status/Living Situation Patient Presentation: Shad was sitting up in bed when CM met with him. He stated that he continues to be observed at [facility], and is waiting to hear if he will have a surgical procedure to place a drain here, or if he will go to [facility]. He stated that he is closely followed by [facility] in the community. He reported that he has had a difficult year, as he has been treated for multiple cancers, and his left him while he was in the hospital. He reported that he has an amazing support system, including five step sons, an adopted child, and many other children/grandchildren he has supported over the years. 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 His cousin, Arabella, was in the room, who he also identified as a support. He asked CM for support with completing new [place] Advanced directives. CM will continue to follow. Town of Residence: [place] Resides with: Alone Significant Other/Family: Local Natural Supports: Many children, grandchildren and other friends/family members that are supportive. Employment Status: Retired Instrumental Activities of Daily Living (ADLs): Independent Medications Medication Management: No Issues/Barriers identified Physical Functioning/Mobility Assistive Device: Shad stated that he has all of the equipment that he needs at this time. Advance Directives Advance Directives: Do you have an Advance Directive: N 05/25/23 04:09 AD On File at [facility]: N 05/03/21 11:58 Date Asked 06/21/24 06/21/24 20:58 AD Date Reviewed COLST On File at [facility] COLST Date Scanned Comment: CM will help Shad complete new [place] AD, at his request. Code Status Resuscitation Status Full Code Insurance Coverage/Financial Issues Insurance: [facility] Care Team Visit Care Team Role Provider Type Froilan Marcos Primary Care Provider NON-[facility] STAFF PHYSICIAN Flores Allison, DO Other Providers OSTEOPATHIC DOCTOR Esthela Carlos Emergency Provider NURSE PRACTITIONER Sanjiv Elizabeth Admit Provider NON-[facility] STAFF PHYSICIAN Attending Provider Discharge Potential Discharge Needs: PCP F/U Appt Anticipated Barriers to Discharge: None Identified Patient/Family Education Needs: Review discharge instructions, discuss Ask Me Three Transportation: Private vehicle Plan: Anticipate Shad will return home once medically cleared. He will transport via private vehicle by family. He will follow up with his PCP and discharge plan of care. CM will continue to follow. Social Determinants of Health Screening Social Determinants of Health last assessed: 06/22/24 Will the Patient Participate in the Screening?: Yes Do you worry about having a steady place to live?: no Problems where you live: no known problems In the past 12 months, have you had to go without electric, gas, oil or water in your home?: no Have you or anyone in your house had to go without enough food to eat?: no Has lack of transportation kept you from medical appointments or from doing things needed for daily living?: no Has anyone in your life made you feel unsafe or unsupported?: no How hard is it for you to pay for the very basics like food, housing, medical care, and heating? Would you say it is:: Not hard at all Do you want help finding or keeping work or a job?: I do not need or want help If for any reason you need help with day-to-day activities such as bathing, preparing meals, shopping, managing finances, etc., do you get the help you need?: I don?t need any help How often do you feel lonely or isolated from those around you?: Never Do you speak a language other than Korean at home?: Yes Does the patient want assistance with any of the above?: Yes Health Related Social Needs Health related social needs: education (Z55.6) PFSH All Active Problems (Updated 06/21/24 @ 23:44 by Sanjiv Elizabeth) Hypomagnesemia (Acute) Acute hypercapnic respiratory failure (Acute) Pleural effusion on left (Acute) COPD (chronic obstructive pulmonary disease) (Chronic) Personal history of nicotine dependence (Acute) Atherosclerosis of coronary artery without angina pectoris (Acute) Primary malignant neoplasm of left lung (Chronic) Acquired pes planus of right foot (Acute) Disorder of the skin and subcutaneous tissue, unspecified (Acute) Increased frequency of urination (Acute) Nausea (Acute) Dizziness and giddiness (Acute) Pain, joint, ankle and foot (Acute) Chronic renal impairment (Acute) Umbilical hernia without obstruction and without gangrene (Acute) Hypertensive disorder (Chronic) Neuropathy (Acute) Obstructive sleep apnea syndrome in adult (Acute) Insomnia (Acute) Acute stress disorder (Acute) Obesity (Chronic) Hyperlipidemia (Acute) Type 2 diabetes mellitus without complication (Chronic) Medical History COPD (chronic obstructive pulmonary disease) Emphysematous bleb of lung Family History Mother Cancer Father Cancer Social History Smoking/Tobacco Use Status: Former Tobacco Use Quit Date: 05/27/01 Smoking risk assessment performed?: Yes Alcohol Intake: never Drug use: Never Substance use type: does not use Housing: house Do you feel safe at home: Yes Do you feel safe in your relationship?: Yes
--- NOTE | 2024-06-22 15:28 | W.PM.PROGNOT ---
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 He will have aggressive treatment of his COPD as exacerbated with oxygen supplementation as needed. Also, therapeutic thoracentesis will be performed by surgeon in consultation. He will long-term follow-up with [facility] with ongoing hematology-oncology care for possible recurrent small cell lung cancer. He is a full code. 06.22.24 Pt is for thoracentesis by Dr. Stern this am (2) Pleural effusion on left: Start date: 06/21/24 Status: Acute Assessment and plan: Surgery consulted for therapeutic thoracentesis. Heparin for DVT prophylaxis was held. Patient did not have PE with CT evaluation upon presentation. 06.22.24 Will restart anticoagulation in am (3) Hypomagnesemia: Start date: 06/21/24 Status: Acute Assessment and plan: IV supplement and follow-up lab. Oral supplement if needed. (4) COPD (chronic obstructive pulmonary disease): Status: Chronic Assessment and plan: Solu-Medrol with aggressive nebulizer treatment. Option supplementation as needed. This is a chronic issue. 06.22.24 Pt on albuterol/duoneb/budesonide/formoterol/methyprednisolone 60mg tid Decrease steroids tomorrow (5) Primary malignant neoplasm of left lung: Status: Chronic Assessment and plan: Small cell lung cancer in the past with possible recurrence. Follow-up with [facility] hematology-oncology. (6) Type 2 diabetes mellitus without complication: Status: Chronic Assessment and plan: Glucometer measurements before meals and at bedtime with sensitive sliding scale short acting insulin coverage. Hold outpatient medical therapy for now. Subjective Subjective Interval history since last seen: Pt seen and examined in his room this am. POC d/w pt as well as bedside nurse during MDR. Pt does complain of intermittent but intense right temporal headache. No phono or photophobia. No nausea, not worse in the am. Pt also states that he had a pleurodesis last year of his right lung Exam Narrative Exam Narrative: General: Patient is thin, appears older than stated age and in no acute distress. He is alert and oriented x 3. HEENT: Normocephalic, eyes with pupils equal and reactive to light symmetrically, extraocular movements intact and sclera anicteric. Oropharynx with slightly dry mucosa and fair dentition. Neck: Supple without JVD. Back: Normal posture without CVA tenderness. Lungs: Decreased aeration over the left more than right with bronchovesicular breath sounds diffusely, scant coarse crackles diffusely with slight expiratory wheeze. Patient is talking comfortably. Heart: Distant heart sounds with regular rate and rhythm. No murmur or gallop appreciated. No rub. Abdomen: Scaphoid contour, soft and nontender to palpation no palpable hepatosplenomegaly. Bowel sounds positive all quadrants. Genitalia/rectal: Exam deferred. Extremities: Without clubbing, cyanosis or pitting edema. Good capillary refill. Skin: Normal color, warm and dry. Neuro: Cranial nerve II to XII gross intact, no focalized motor deficits. No tremor. Psych: Flattened affect with normal mood. No abnormal thought processes. Remote and recent memory grossly intact. Objective Last Vital Signs Temp 37.1 C 06/22/24 15:13 Pulse 72 06/22/24 15:13 Resp 18 06/22/24 15:13 BP 131/80 06/22/24 15:13 Pulse Ox 95 06/22/24 15:13 Laboratory Results - last 24 hr 06/21/24 06/21/24 06/21/24 20:54 21:00 22:04 WBC 5.28 RBC 4.17 L Hgb 13.9 Hct 43.5 MCV 104 H MCH 33.3 H MCHC 32.0 RDW 15.2 H Plt Count 224 MPV 8.8 Immature Gran % 0.2 Neutrophils % 68.4 Lymphocytes % 14.2 Monocytes % 10.4 Eosinophils % 5.3 Basophils % 1.5 Nucleated RBC % 0.0 Absolute Neutrophils 3.61 Absolute Lymphocytes 0.75 L Absolute Monocytes 0.55 Absolute Eosinophils 0.28 Absolute Basophils 0.08 D-Dimer Cancelled VBG pH 7.34 VBG pCO2 55 H VBG pO2 23 VBG HCO3 30 H VBG Total CO2 27 VBG O2 Saturation 34 VBG Base Excess 4 H Sodium 142 Potassium 4.0 Chloride 106 Carbon Dioxide 31.5 Anion Gap 4.5 BUN 16 Creatinine 1.2 Est GFR (CKD-EPI 2020) 67.11 Glucose 129 H Calcium 9.1 Magnesium 1.6 L Total Bilirubin 0.30 AST 25 ALT 29 Alkaline Phosphatase 107 Troponin I 34 37 NT-Pro-B Natriuret Pep 565 H Total Protein 6.6 Albumin 3.5 TSH 2.51 COVID-19 Source SARS-CoV-2 (PCR) Add-On Test Request DONE 06/21/24 06/22/24 06/22/24 23:53 00:15 06:28 WBC 5.38 RBC 4.36 Hgb 14.5 Hct 44.6 MCV 102 H MCH 33.3 H MCHC 32.5 RDW 14.8 H Plt Count 231 MPV 9.5 Immature Gran % Neutrophils % Lymphocytes % Monocytes % Eosinophils % Basophils % Nucleated RBC % Absolute Neutrophils Absolute Lymphocytes Absolute Monocytes Absolute Eosinophils Absolute Basophils D-Dimer VBG pH VBG pCO2 VBG pO2 VBG HCO3 VBG Total CO2 VBG O2 Saturation VBG Base Excess Sodium 142 Potassium 4.4 Chloride 105 Carbon Dioxide 29.7 Anion Gap 7.3 BUN 14 Creatinine 1.1 Est GFR (CKD-EPI 2020) 74.50 Glucose 157 H Calcium 9.6 Magnesium 2.1 Total Bilirubin 0.35 AST 24 ALT 28 Alkaline Phosphatase 123 H Troponin I 44 NT-Pro-B Natriuret Pep Total Protein 6.8 Albumin 3.6 TSH COVID-19 Source Nasal/Nares SARS-CoV-2 (PCR) Negative Add-On Test Request Time Spent with Patient Time Spent with Patient: 35-49 minutes Time was spent: preparing to see the patient(eg.review tests), obtaining and/or reviewing separately otained hiistory, ordering medications,tests, procedures, referring, communicating with other health home care giver, indepentently interpreting results, counseling the patient and care coordination
--- NOTE | 2024-06-22 16:27 | W.SURGCON ---
Date of service: 06/22/24 Time of Service: 16:27 Assessment and Plan Assessment and plan (1) Pleural effusion on left: Status: Acute Assessment and plan: I spoke to Dr Jimenes and reviewed Shad's case. At this point, there is no urgent indication for thoracentesis, and given his minimal improvement of his symptoms during his last procedure, I do not think there is much benefit to repeating it at this point. He has a consultation scheduled with his thoracic surgeon this to discuss left-sided VATS, biopsies, and pericardiocentesis. Assuming he does okay overnight in terms of oxygenation and ventilation, I think is very reasonable to discharge him home, and have him follow-up with his specialist at [facility] this week. History of Present Illness History of Present Illness Chief Complaint: Left-sided pleural effusion Narrative: Shad 64 years old. He comes to the emergency department with a chief complaint of heaviness and discomfort in the left side of his chest. This is associated with some significant exertional dyspnea. It has been ongoing for several weeks, but he did feel like the shortness of breath was a little bit worse last night. He spoke to his oncologist, who suggested he come to the emergency department. His oncologist is Dr. Jimenes at [facility]. He sees him for treatment of esophageal cancer. This esophageal cancer was diagnosed in July 2023. Ricardo been experiencing right sided back and flank pain, and he underwent a CT scan that demonstrated some thickening of the esophagus. EGD was follow-up for that. 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 Other significant medical history includes non-small cell lung cancer diagnosed in 2013. This was treated with chemotherapy and radiation, was thought to be in remission. After the new diagnosis of esophageal cancer, the patient underwent a right-sided video-assisted thorascopic surgery to evaluate abnormalities appreciated on a PET CT scan. This was performed in August 2023, and biopsies were all negative for malignancy. He also underwent talc pleurodesis at that time. At that point, the diagnosis seem most consistent with a locally advanced distal esophageal adenocarcinoma, and given his radiation history, he is thought to be a poor surgical candidate. He began chemotherapy and radiation in September 2023. Generally, he seemed to tolerate this treatment well. He has undergone follow-up EGD with negative biopsies of the GE junction. In March 2024 he started develop increasing exertional dyspnea. He underwent a CT scan at [facility] on April 06 that demonstrated left-sided pleural effusion and pericardial effusion. He underwent thoracentesis at [facility] with mild improvement of his symptoms. Cytology was negative for malignancy. He is supposed to follow-up with Dr. Dooley at [facility] on the to plan for left-sided VATS, pericardiocentesis, and possible pleurodesis or insertion of a Pleurx catheter. In the interim, he felt like his dyspnea was a little worse, and he spoke to the fellow on-call who referred him to the emergency department. I was consulted for thoracentesis. Since his admission, he is feeling a little bit better, with less dyspnea, although he has mostly been laying around in bed. Review of Systems Constitutional Constitutional: Reports fatigue, Denies fever(s), Denies poor appetite and Denies weight loss Eyes Eyes: Reports system reviewed and no additional complaints, except as documented ENT Ears, Nose, Mouth, and Throat: Reports system reviewed and no additional complaints, except as documented Cardiovascular Cardiovascular: Reports chest pain, Reports dyspnea on exertion and Reports orthopnea Respiratory Respiratory: Reports cough and Reports dyspnea on exertion Gastrointestinal Gastrointestinal: Denies abdominal pain, Denies nausea and Denies vomiting Comments: Dysphagia secondary to esophageal strictures, which has improved since his last dilation Endocrine Endocrine: Reports fatigue Hematologic/Lymphatic Hematologic/Lymphatic: Denies easy bleeding and Denies easy bruising PFSH All Active Problems (Updated 06/21/24 @ 23:44 by Sanjiv Elizabeth) Hypomagnesemia (Acute) Acute hypercapnic respiratory failure (Acute) Pleural effusion on left (Acute) COPD (chronic obstructive pulmonary disease) (Chronic) Personal history of nicotine dependence (Acute) Atherosclerosis of coronary artery without angina pectoris (Acute) Primary malignant neoplasm of left lung (Chronic) Acquired pes planus of right foot (Acute) Disorder of the skin and subcutaneous tissue, unspecified (Acute) Increased frequency of urination (Acute) Nausea (Acute) Dizziness and giddiness (Acute) Pain, joint, ankle and foot (Acute) Chronic renal impairment (Acute) Umbilical hernia without obstruction and without gangrene (Acute) Hypertensive disorder (Chronic) Neuropathy (Acute) Obstructive sleep apnea syndrome in adult (Acute) Insomnia (Acute) Acute stress disorder (Acute) Obesity (Chronic) Hyperlipidemia (Acute) Type 2 diabetes mellitus without complication (Chronic) Medical History COPD (chronic obstructive pulmonary disease) Emphysematous bleb of lung Family History Mother Cancer Father Cancer Social History Smoking/Tobacco Use Status: Former Tobacco Use Quit Date: 05/27/01 Smoking risk assessment performed?: Yes Alcohol Intake: never Drug use: Never Substance use type: does not use Housing: house Do you feel safe at home: Yes Do you feel safe in your relationship?: Yes Exam Const General: cooperative, comfortable and no acute distress Nutritional Appearance: average body habitus Orientation: alert and oriented x3 HENMT Head: normal to inspection Eyes General: appearance normal, both eyes and all related structures Neck Neck: normal visual inspection, full ROM, no lymphadenopathy and No JVD Resp Effort & Inspection: normal respiratory effort, able to speak in complete sentences and no audible wheezes Auscultation: breath sounds absent on th left (Posterior and basilar) Percussion: dullness Results Last Vital Signs Temp 98.8 F 06/22/24 15:13 Pulse 72 06/22/24 15:13 Resp 18 06/22/24 15:13 BP 131/80 06/22/24 15:13 Pulse Ox 95 06/22/24 15:13 Labs 06/22/24 06:28 06/22/24 06:28 Labs: Laboratory Results - last 24 hr 06/21/24 06/21/24 06/21/24 20:54 21:00 22:04 WBC 5.28 RBC 4.17 L Hgb 13.9 Hct 43.5 MCV 104 H MCH 33.3 H MCHC 32.0 RDW 15.2 H Plt Count 224 MPV 8.8 Immature Gran % 0.2 Neutrophils % 68.4 Lymphocytes % 14.2 Monocytes % 10.4 Eosinophils % 5.3 Basophils % 1.5 Nucleated RBC % 0.0 Absolute Neutrophils 3.61 Absolute Lymphocytes 0.75 L Absolute Monocytes 0.55 Absolute Eosinophils 0.28 Absolute Basophils 0.08 D-Dimer Cancelled VBG pH 7.34 VBG pCO2 55 H VBG pO2 23 VBG HCO3 30 H VBG Total CO2 27 VBG O2 Saturation 34 VBG Base Excess 4 H Sodium 142 Potassium 4.0 Chloride 106 Carbon Dioxide 31.5 Anion Gap 4.5 BUN 16 Creatinine 1.2 Est GFR (CKD-EPI 2020) 67.11 Glucose 129 H Calcium 9.1 Magnesium 1.6 L Total Bilirubin 0.30 AST 25 ALT 29 Alkaline Phosphatase 107 Troponin I 34 37 NT-Pro-B Natriuret Pep 565 H Total Protein 6.6 Albumin 3.5 TSH 2.51 COVID-19 Source SARS-CoV-2 (PCR) Add-On Test Request DONE 06/21/24 06/22/24 06/22/24 23:53 00:15 06:28 WBC 5.38 RBC 4.36 Hgb 14.5 Hct 44.6 MCV 102 H MCH 33.3 H MCHC 32.5 RDW 14.8 H Plt Count 231 MPV 9.5 Immature Gran % Neutrophils % Lymphocytes % Monocytes % Eosinophils % Basophils % Nucleated RBC % Absolute Neutrophils Absolute Lymphocytes Absolute Monocytes Absolute Eosinophils Absolute Basophils D-Dimer VBG pH VBG pCO2 VBG pO2 VBG HCO3 VBG Total CO2 VBG O2 Saturation VBG Base Excess Sodium 142 Potassium 4.4 Chloride 105 Carbon Dioxide 29.7 Anion Gap 7.3 BUN 14 Creatinine 1.1 Est GFR (CKD-EPI 2020) 74.50 Glucose 157 H Calcium 9.6 Magnesium 2.1 Total Bilirubin 0.35 AST 24 ALT 28 Alkaline Phosphatase 123 H Troponin I 44 NT-Pro-B Natriuret Pep Total Protein 6.8 Albumin 3.6 TSH COVID-19 Source Nasal/Nares SARS-CoV-2 (PCR) Negative Add-On Test Request
[2024-06-22] MEDS: Rosuvastatin 20 MG TAB PO (20:38)
[2024-06-22] MEDS: oxyCODONE 5 MG TAB PO (21:54)
[2024-06-23] VITALS (12 sets, daily range): BP systolic 118–127; BP diastolic 69–80; PULSE 65–84; RESP 2–19; TEMP 36–36.9; O2SAT 93–98
--- NOTE | 2024-06-23 | DI.MRI_ITS ---
Exam(s) MR THORACIC SPINE WO/W EXAM: MR THORACIC SPINE WO/W CLINICAL HISTORY: abnormal ct scan result TECHNIQUE: Multiplanar multisequence MRI of the thoracic spine was performed with both pre and post contrast infused sequences. Contrast injected: 16 mL Dotarem intravenous COMPARISON: CT CT CHEST PE ABD PELVIS W from 05/25/[address] CHEST PE CTA from 06/21/2024 FINDINGS: OSSEOUS: There is now a wedge type compression fracture of T8 and superior endplate compression fract ure of T9, these findings resulting in mild kyphosis at this level. These findings were not evident on prior CT scan of 05/25/2023. There is some edema and enhancement at the level of the fractures an d within the T8 and T9 vertebral bodies there is loss of the disc space when compared to the previous CT study 1 year ago and when compared to the other preserved disc spaces in the thoracic spinal colu mn evident on today's study. There is no disc herniation at this level. There is no dehiscence of t he posterior cortices of these vertebral bodies nor canal compromise at this level. There is no evid ence of epidural fluid collection. No abnormal signal nor enhancement at the level of the facet join ts. No evidence of paraspinal collection. No evidence of central spinal canal stenosis. No evidence of foraminal stenosis. No significant fac et arthropathy evident in thoracic spinal column.. THORACIC SPINAL CORD: There is no abnormal signal in the cervical spinal cord and no evidence of foca l cord atrophy nor focal cord swelling. There is no abnormal enhancement in the thoracic spinal cord . There is no evidence of syringomyelia nor significant spinal cord dysraphism. There is no evidence of mass at the conus medullaris and the position of the conus medullaris is at the normal location PARASPINAL TISSUES: No significant masses nor fluid collections evident. OTHER: Significant moderate-large left pleural effusion noted, as evident on recent CT scan of 2024. An. IMPRESSION: 1. Partial wedge-type compression fracture of T8 and superior endplate compression fracture of subjac ent T9 vertebral bodies, new since prior CT scan of 05/25/2021. There is also now significant diminu tion of the disc space at this level. There is no disc herniation. No central canal stenosis nor fo raminal stenosis. No epidural nor paraspinal collections evident. There is possibly that the above T8-T9 level findings are related to pathologic cause such as infectious etiology or neoplastic. Marcos elation with medical history and appropriate blood work recommended. Also recommend repeat MRI in sh ort interval to determine stability versus progression. DATA REPOSITORY:
[2024-06-23] MEDS: methylPREDNISolone SUCC 125 MG VIAL 60 MG IVP ×3 (04:02→18:48)
[2024-06-23] MEDS: Normal Saline Flush 10 ML SYR IVP ×4 (04:03→18:48)
[2024-06-23] MEDS: Albuterol/Ipratropium 3 ML UPD VIAL UPD ×3 (05:31→17:49)
[2024-06-23 06:39] LABS: Abs Immature Grans 0.04 10^3/uL (0.0-0.06); Absolute Basophil Count 0.01 10^3/uL (0.0-0.2); Absolute Lymphocyte Count 0.56 10^3/uL (1.2-3.4); Absolute Neutrophil Count 9.83 10^3/uL (1.2-6.7); Basophils % 0.1 %; HCT 40.4 % (40.0-50.0); HGB 13.3 g/dL (13.5-17.5); Immature Grans % 0.4 %; Lymphocytes % 5.2 %; MCH 33.1 pg (27.0-33.0); MCHC 32.9 % (32.0-36.0); MCV 101 fL (80-95); MPV 9.3 fL (8.0-11.0); Monocytes % 2.8 %; Neutrophils % 91.5 %; Platelet Count 242 10^3/uL (130-400); RBC 4.02 10^6/uL (4.36-5.78); RDW 14.7 % (11.8-14.1); RDW-SD 54.6 fL; WBC 10.74 10^3/uL (4.4-10.8)
[2024-06-23 07:00] LABS: ALT 27 U/L (16-63); AST 19 U/L (15-37); Albumin 3.5 g/dL (3.4-5.0); Alkaline Phosphatase 116 U/L (46-116); Anion Gap 7.4 mmol/L (3-11); BUN 25 mg/dL (7-18); Bilirubin, Total 0.45 mg/dL (0.2-1.0); CO2 27.6 mmol/L (21.0-32.0); CREATININE 1.3 mg/dL (0.70-1.30); Calcium 9.7 mg/dL (8.5-10.1); Chloride 104 mmol/L (98-107); Estimated GFR 60.96 (mL/min/1.73m2); Glucose 225 mg/dL (74-106); Magnesium 1.9 mg/dL (1.8-2.4); Potassium 4.6 mmol/L (3.5-5.1); Sodium 139 mmol/L (136-145); Total Protein 6.7 g/dL (6.4-8.2)
[2024-06-23] MEDS: Budesonide/Formoterol 160/4.5 6 GM 60 PUFF INH IH ×2 (07:43→21:45)
[2024-06-23] MEDS: buPROPion-XL 150 MG TABCR 300 MG PO (08:24)
[2024-06-23] MEDS: Metoprolol 50 MG TAB 100 MG PO ×2 (08:25→21:06)
[2024-06-23] MEDS: Lisinopril 2.5 MG TAB PO (08:25)
[2024-06-23] MEDS: Insulin Aspart 300 UNITS/3 ML PEN SC ×4 (08:26→21:06)
[2024-06-23] MEDS: Pantoprazole 40 MG TABCR PO (08:26)
[2024-06-23] MEDS: Roflumilast 500 MCG TAB PO (08:26)
[2024-06-23] MEDS: Lidocaine 5% Patch 1 PATCH TP (10:15)
--- NOTE | 2024-06-23 13:00 | PGE_ITS ---
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 He will have aggressive treatment of his COPD as exacerbated with oxygen supplementation as needed. Also, therapeutic thoracentesis will be performed by surgeon in consultation. He will long-term follow-up with [facility] with ongoing hematology-oncology care for possible recurrent small cell lung cancer. He is a full code. 06.22.24 Pt is for thoracentesis by Dr. Stern this am 06.23.24 No thoracentesis performed. Please review surgical consultation (2) Pleural effusion on left: Start date: 06/21/24 Status: Acute Assessment and plan: Surgery consulted for therapeutic thoracentesis. Heparin for DVT prophylaxis was held. Patient did not have PE with CT evaluation upon presentation. 06.22.24 Will restart anticoagulation in am (3) Hypomagnesemia: Start date: 06/21/24 Status: Acute Assessment and plan: IV supplement and follow-up lab. Oral supplement if needed. (4) COPD (chronic obstructive pulmonary disease): Status: Chronic Assessment and plan: Solu-Medrol with aggressive nebulizer treatment. Option supplementation as needed. This is a chronic issue. 06.22.24 Pt on albuterol/duoneb/budesonide/formoterol/methyprednisolone 60mg tid Decrease steroids tomorrow (5) Primary malignant neoplasm of left lung: Status: Chronic Assessment and plan: Small cell lung cancer in the past with possible recurrence. Follow-up with [facility] hematology-oncology. (6) Type 2 diabetes mellitus without complication: Status: Chronic Assessment and plan: Glucometer measurements before meals and at bedtime with sensitive sliding scale short acting insulin coverage. Hold outpatient medical therapy for now. (7) Thoracic spine tumor: Status: Acute Assessment and plan: This is only a possible diagnosis. MRI is pending Subjective Subjective Interval history since last seen: Pt seen and examined in his room this am. The plan was for discharge but in reviewing his CT there was a recommendation for a MRI to evaluate possible metastasis in his thoracic spine. I offered to dc and follow up as an outpatient but pt elected to get MRI done on this admission Exam Narrative Exam Narrative: General: Patient is thin, appears older than stated age and in no acute distress. He is alert and oriented x 3. HEENT: Normocephalic, eyes with pupils equal and reactive to light symmetrically, extraocular movements intact and sclera anicteric. Oropharynx with slightly dry mucosa and fair dentition. Neck: Supple without JVD. Back: Normal posture without CVA tenderness. Lungs: Decreased aeration over the left more than right with bronchovesicular breath sounds diffusely, scant coarse crackles diffusely with slight expiratory wheeze. Patient is talking comfortably. Heart: Distant heart sounds with regular rate and rhythm. No murmur or gallop appreciated. No rub. Abdomen: Scaphoid contour, soft and nontender to palpation no palpable hepatosplenomegaly. Bowel sounds positive all quadrants. Genitalia/rectal: Exam deferred. Extremities: Without clubbing, cyanosis or pitting edema. Good capillary refill. Skin: Normal color, warm and dry. Neuro: Cranial nerve II to XII gross intact, no focalized motor deficits. No tremor. Psych: Flattened affect with normal mood. No abnormal thought processes. Remote and recent memory grossly intact. Objective Last Vital Signs Temp 36.8 C 06/23/24 11:47 Pulse 75 06/23/24 11:47 Resp 16 06/23/24 11:47 BP 121/69 06/23/24 11:47 Pulse Ox 98 06/23/24 11:47 Laboratory Results - last 24 hr 06/23/24 06/23/24 06:13 06:15 WBC 10.74 RBC 4.02 L Hgb 13.3 L Hct 40.4 MCV 101 H MCH 33.1 H MCHC 32.9 RDW 14.7 H Plt Count 242 MPV 9.3 Immature Gran % 0.4 Neutrophils % 91.5 Lymphocytes % 5.2 Monocytes % 2.8 Eosinophils % 0.0 Basophils % 0.1 Nucleated RBC % 0.0 Absolute Neutrophils 9.83 H Absolute Lymphocytes 0.56 L Absolute Monocytes 0.30 Absolute Eosinophils 0.00 Absolute Basophils 0.01 Sodium 139 Potassium 4.6 Chloride 104 Carbon Dioxide 27.6 Anion Gap 7.4 BUN 25 H Creatinine 1.3 Est GFR (CKD-EPI 2020) 60.96 Glucose 225 H Calcium 9.7 Magnesium 1.9 Total Bilirubin 0.45 AST 19 ALT 27 Alkaline Phosphatase 116 Total Protein 6.7 Albumin 3.5 Time Spent with Patient Time Spent with Patient: 35-49 minutes Time was spent: preparing to see the patient(eg.review tests), obtaining and/or reviewing separately otained hiistory, ordering medications,tests, procedures, referring, communicating with other health child care cook, indepentently interpreting results, counseling the patient and care coordination
[2024-06-23] MEDS: Normal Saline 1,000 ML 500 ML IV (13:36)
--- NOTE | 2024-06-23 14:45 | PDOC.CMPRO ---
Date of service: 06/23/24 Time of Service: 14:45 Care Management Progress Note Progress Note Text Progress Note Text: Shad was not in the room when CM attempted to meet with him. Per report, an MRI was ordered to evaluate for possible metastasis in his spine. Chaplain Rossy, supported him with new [place] advanced directives, at CM's request, in order to complete them on this admission, and she graciously offered to help. Per report, he will likely be ready for discharge tomorrow. CM will continue to follow. Discharge Potential Discharge Needs: PCP F/U Appt Anticipated Barriers to Discharge: None Identified Patient/Family Education Needs: Review discharge instructions, discuss Ask Me Three Transportation: Private vehicle Plan: Anticipate Shad will return home once medically cleared. He will transport via private vehicle by family. He will follow up with his PCP and discharge plan of care. CM will continue to follow. Social Determinants of Health Screening Social Determinants of Health last assessed: 06/23/24 Will the Patient Participate in the Screening?: Yes Do you worry about having a steady place to live?: no Problems where you live: no known problems In the past 12 months, have you had to go without electric, gas, oil or water in your home?: no Have you or anyone in your house had to go without enough food to eat?: no Has lack of transportation kept you from medical appointments or from doing things needed for daily living?: no Has anyone in your life made you feel unsafe or unsupported?: no How hard is it for you to pay for the very basics like food, housing, medical care, and heating? Would you say it is:: Not hard at all Do you want help finding or keeping work or a job?: I do not need or want help If for any reason you need help with day-to-day activities such as bathing, preparing meals, shopping, managing finances, etc., do you get the help you need?: I don?t need any help How often do you feel lonely or isolated from those around you?: Never Do you speak a language other than Kiswahili at home?: Yes Does the patient want assistance with any of the above?: Yes Health Related Social Needs Health related social needs: education (Z55.6)
[2024-06-23] MEDS: LORazepam 1 MG TAB 2 MG PO (14:51)
[2024-06-23] MEDS: Gadoterate meglumine 20 ML SYRINGE 16 ML IVP (15:21)
--- NOTE | 2024-06-23 15:48 | CHAPLAIN ---
Care Management asked if I would complete and Advanced Directive with Shad. He told me that his left him recently, and he needed to change who his health care agents are. Shad explained that he's been dealing with four different types of cancers and his left him saying she couldn't deal with it any more. Shad has several stepchildren and an adopted child who have been strong supports for him and continue to be. We got the AD completed, scanned into our system and faxed to the [place] Registry.
[2024-06-23] MEDS: Acetaminophen 325 MG TAB PO (16:46)
[2024-06-23] MEDS: Rosuvastatin 20 MG TAB PO (21:06)
[2024-06-23] MEDS: Lidocaine Patch Removal 1 EACH TP (21:18)
[2024-06-24] VITALS (10 sets, daily range): BP systolic 108–126; BP diastolic 55–76; PULSE 60–75; RESP 9–18; TEMP 36.1–36.4; O2SAT 92–99
[2024-06-24] MEDS: Albuterol/Ipratropium 3 ML UPD VIAL UPD ×3 (00:08→11:51)
[2024-06-24] MEDS: Normal Saline Flush 10 ML SYR IVP (00:13)
[2024-06-24] MEDS: methylPREDNISolone SUCC 125 MG VIAL 60 MG IVP ×2 (02:58→09:38)
[2024-06-24 07:22] LABS: Abs Immature Grans 0.05 10^3/uL (0.0-0.06); Absolute Basophil Count 0.01 10^3/uL (0.0-0.2); Absolute Eosinophil Count 0.02 10^3/uL (0.0-0.7); Absolute Lymphocyte Count 0.48 10^3/uL (1.2-3.4); Absolute Monocyte Count 0.28 10^3/uL (0.1-0.8); Absolute Neutrophil Count 11.18 10^3/uL (1.2-6.7); Basophils % 0.1 %; Eosinophils % 0.2 %; HCT 37.7 % (40.0-50.0); HGB 12.7 g/dL (13.5-17.5); Immature Grans % 0.4 %; MCH 33.8 pg (27.0-33.0); MCHC 33.7 % (32.0-36.0); MCV 100 fL (80-95); MPV 9.6 fL (8.0-11.0); Monocytes % 2.3 %; Platelet Count 257 10^3/uL (130-400); RBC 3.76 10^6/uL (4.36-5.78); RDW 15.5 % (11.8-14.1); RDW-SD 57.2 fL; WBC 12.02 10^3/uL (4.4-10.8)
[2024-06-24] MEDS: Acetaminophen 325 MG TAB PO (07:27)
[2024-06-24 07:53] LABS: ALT 43 U/L (16-63); AST 30 U/L (15-37); Albumin 3.3 g/dL (3.4-5.0); Alkaline Phosphatase 101 U/L (46-116); Anion Gap 5.8 mmol/L (3-11); BUN 35 mg/dL (7-18); Bilirubin, Total 0.28 mg/dL (0.2-1.0); CO2 27.2 mmol/L (21.0-32.0); CREATININE 1.4 mg/dL (0.70-1.30); Calcium 9.5 mg/dL (8.5-10.1); Chloride 106 mmol/L (98-107); Estimated GFR 55.78 (mL/min/1.73m2); Glucose 246 mg/dL (74-106); Potassium 4.4 mmol/L (3.5-5.1); Sodium 139 mmol/L (136-145); Total Protein 6.3 g/dL (6.4-8.2)
[2024-06-24] MEDS: Budesonide/Formoterol 160/4.5 6 GM 60 PUFF INH IH (07:58)
[2024-06-24] MEDS: Insulin Aspart 300 UNITS/3 ML PEN SC ×2 (09:08→12:08)
[2024-06-24] MEDS: Pantoprazole 40 MG TABCR PO (09:30)
[2024-06-24] MEDS: Lisinopril 2.5 MG TAB PO (09:36)
[2024-06-24] MEDS: Roflumilast 500 MCG TAB PO (09:36)
[2024-06-24] MEDS: buPROPion-XL 150 MG TABCR 300 MG PO (09:36)
[2024-06-24] MEDS: Metoprolol 50 MG TAB 100 MG PO (09:37)
[2024-06-24] MEDS: Lidocaine 5% Patch 1 PATCH TP (09:39)
--- NOTE | 2024-06-24 12:38 | W.PM.DS.N ---
Date of service: 06/24/24 Time of Service: 12:38 DS: Diagnosis Discharge Diagnosis (1) Acute hypercapnic respiratory failure: Status: Acute (2) Pleural effusion on left: Status: Acute (3) Hypomagnesemia: Status: Acute (4) COPD (chronic obstructive pulmonary disease): Status: Chronic (5) Primary malignant neoplasm of left lung: Status: Chronic (6) Type 2 diabetes mellitus without complication: Status: Chronic (7) Thoracic spine tumor: Status: Acute Discharge Plan Disposition Patient Disposition: Home Condition: Stable Discharge Details Reason For Visit: Left Pleural Effusion, COPD Admit Date/Time: 06/21/24 23:40 Admit Provider: Sanjiv Elizabeth Attending Provider: Sanjiv Elizabeth Primary Care Provider: Froilan Marcos [facility] Hospital Course: This is a 64-year-old gentleman who presents to the hospital with respiratory distress on 21 June was seen in our ED and admitted to the hospital service. At the time of admission the patient was noted to have pleural effusion and a consult was placed to general surgery for thoracentesis. A consultation from Dr. Stern is available for review and I will add his assessment and plan. Essentially no thoracentesis was performed secondary to the patient will soon to have a procedure done by Dr. Ascencio who is his oncologist. Assessment and plan: I spoke to Dr Jimenes and reviewed Shad's case. At this point, there is no urgent indication for thoracentesis, and given his minimal improvement of his symptoms during his last procedure, I do not think there is much benefit to repeating it at this point. He has a consultation scheduled with his thoracic surgeon this to discuss left-sided VATS, biopsies, and pericardiocentesis. Assuming he does okay overnight in terms of oxygenation and ventilation, I think is very reasonable to discharge him home, and have him follow-up with his specialist at [facility] this week. I will space a copy of his CT results in terms of this impression MPRESSION: 1. No evidence of pulmonary embolism, thoracic aortic dissection or aneurysm. 2. Interval loss of volume in sclerosis of the T8 and T9 vertebral bodies. Differential considerations should include metastatic disease, fracture or infection. Please correlate with the patient's clinical history. MRI of the thoracic spine without and with contrast should be considered for further evaluation. 3. Bilateral pleural effusions. Large left pleural effusion and small right pleural effusion. Subjacent infiltrates which may represent atelectasis or pneumonia. 4. Old healed right rib fractures It is imperative that Mr. Edmondson follow-up with his structural technician oncologist in the outpatient setting for evaluation of possible metastatic disease into his spine. The patient is anxious to be discharged though. Considering the results of the CT as above the patient and I made joint decision to do the MRI prior to his discharge I will have the results. The patient will need to have close follow-up and a repeat MRI per recommendations from radiology. Patient states that he does have an appoint with his oncologist in the next week or so. MPRESSION: 1. Partial wedge-type compression fracture of T8 and superior endplate compression fracture of subjacent T9 vertebral bodies, new since prior CT scan of 05/25/2021. There is also now significant diminution of the disc space at this level. There is no disc herniation. No central canal stenosis nor foraminal stenosis. No epidural nor paraspinal collections evident. There is possibly that the above T8-T9 level findings are related to pathologic cause such as infectious etiology or neoplastic. Correlation with medical history and appropriate blood work recommended. Also recommend repeat MRI in short interval to determine stability versus progression. I will also place the surgical consult in the note for convenience. Assessment and plan: I spoke to Dr Jimenes and reviewed Shad's case. At this point, there is no urgent indication for thoracentesis, and given his minimal improvement of his symptoms during his last procedure, I do not think there is much benefit to repeating it at this point. He has a consultation scheduled with his thoracic surgeon this to discuss left-sided VATS, biopsies, and pericardiocentesis. Assuming he does okay overnight in terms of oxygenation and ventilation, I think is very reasonable to discharge him home, and have him follow-up with his specialist at [facility] this week. Home Meds and New Rx's Prescriptions: No Action budesonide-formoterol [Symbicort] 160-4.5 mcg/actuation HFA aerosol inhaler 2 puff inhalation BID PRN albuterol sulfate 90 mcg/actuation HFA aerosol inhaler 2 puff inhalation 6XD bupropion HCl 300 mg tablet extended release 24 hr 300 mg PO QAM ipratropium-albuterol 0.5 mg-3 mg(2.5 mg base)/3 mL solution for nebulization 3 ml inhalation QID PRN lisinopril 2.5 mg tablet 2.5 mg PO DAILY metformin 1,000 mg tablet 1,000 mg PO BID metoprolol tartrate 25 mg tablet 100 mg PO BID rosuvastatin 20 mg tablet 20 mg PO DAILY Stiolto Respimat 2.5-2.5 mcg/actuation mist 2 puff inhalation DAILY roflumilast 500 mcg tablet See Rx Instructions .ROUTE .COMPLEX Qty: 30 12RF Dose Instruction: TAKE ONE TABLET BY MOUTH EVERY DAY; START THIS DOSE AFTER FINISHING THE 250 MCG DOSE Rx Instructions: TAKE ONE TABLET BY MOUTH EVERY DAY; START THIS DOSE AFTER FINISHING THE 250 MCG DOSE lidocaine [Lidoderm] 5 % adhesive patch,medicated 1 patch Topical Q24H Qty: 15 0RF omeprazole 40 mg capsule,delayed release(DR/EC) 40 mg PO DAILY Patient Comments: TAKE ONE CAPSULE BY MOUTH EVERY DAY cyclobenzaprine 10 mg tablet 10 mg PO TID PRN Discharge Instructions Referrals: Venkat Rodriguez MD [ [facility] STAFF PHYSICIAN] - Froilan Marcos [Primary Care Provider] - (follow up in 5-7 days. Also, follow up with your oncologist and surgeon as previously scheduled) Activity:: Activity as Tolerated Equipment/Supplies:: No Equipment Needed Diet:: As Tolerated Discharge Orders Discharge Orders: Discharge Order (Routine); Ordered 06/23/24 Ordered By: Venkat Rodriguez DS: Summary Time Spent with Patient providing and/or coordinating discharge services: Greater than 30 minutes Status at Discharge Functional status at discharge: independent ambulation Overall status at discharge: patient is back to baseline Mental Status: mental status grossly normal Speech and Movement: speech and movement normal Mood: congruent mood Affect: normal affect Quality:SDOH Health Related Social Needs: Health related social needs education (Z55.6) Exam Narrative Exam Narrative: General: Patient is thin, appears older than stated age and in no acute distress. He is alert and oriented x 3. HEENT: Normocephalic, eyes with pupils equal and reactive to light symmetrically, extraocular movements intact and sclera anicteric. Oropharynx with slightly dry mucosa and fair dentition. Neck: Supple without JVD. Back: Normal posture without CVA tenderness. Lungs: Decreased aeration over the left more than right with bronchovesicular breath sounds diffusely, scant coarse crackles diffusely with slight expiratory wheeze. Patient is talking comfortably. Heart: Distant heart sounds with regular rate and rhythm. No murmur or gallop appreciated. No rub. Abdomen: Scaphoid contour, soft and nontender to palpation no palpable hepatosplenomegaly. Bowel sounds positive all quadrants. Genitalia/rectal: Exam deferred. Extremities: Without clubbing, cyanosis or pitting edema. Good capillary refill. Skin: Normal color, warm and dry. Neuro: Cranial nerve II to XII gross intact, no focalized motor deficits. No tremor. Psych: Flattened affect with normal mood. No abnormal thought processes. Remote and recent memory grossly intact. Psych Mental Status: mental status grossly normal Speech and Movement: speech and movement normal Mood: congruent mood Affect: normal affect DS: Data Vitals/I&O Vitals and I&O: Vital Signs Temperature 36.3 C L 06/24/24 11:37 Temperature Source Temporal Artery Scan 06/24/24 11:37 Pulse 62 06/24/24 11:51 Pulse 72 06/22/24 00:50 Respiratory Rate 18 06/24/24 11:51 Respiratory Effort Normal 06/22/24 01:40 Respiratory Depth Normal 06/22/24 01:40 Respiratory Pattern Normal 06/22/24 01:40 Blood Pressure 126/70 06/24/24 11:37 Blood Pressure Mean 94 06/22/24 00:30 Blood Pressure Position Supine 06/21/24 20:52 Pulse Oximetry 98 06/24/24 11:51 Oxygen Delivery Method Room Air 06/24/24 11:51 Oxygen Flow Rate 0 06/24/24 11:51 Pain Level 6 06/24/24 11:37 Comment left lung 06/21/24 20:52 Intake & Output 06/23/24 06/24/24 06/24/24 23:59 11:59 23:59 Intake Total 1420 / 1420 1000 / 1300 300 / 1300 Balance 1420 / 1420 1000 / 1300 300 / 1300 Weight 82.6 kg Intake: IV 1000 / 1000 1000 / 1000 Oral 420 / 420 300 / 300 Other: Urine Color Pale Urine Appearance Clear Urine Odor Normal Comment Ind Data Completed and Pending Labs on day of discharge: Labs from last 24 hours 06/24/24 06:12 WBC 12.02 H RBC 3.76 L Hgb 12.7 L Hct 37.7 L MCV 100 H MCH 33.8 H MCHC 33.7 RDW 15.5 H Plt Count 257 MPV 9.6 Immature Gran % 0.4 Neutrophils % 93.0 Lymphocytes % 4.0 Monocytes % 2.3 Eosinophils % 0.2 Basophils % 0.1 Nucleated RBC % 0.0 Absolute Neutrophils 11.18 H Absolute Lymphocytes 0.48 L Absolute Monocytes 0.28 Absolute Eosinophils 0.02 Absolute Basophils 0.01 Sodium 139 Potassium 4.4 Chloride 106 Carbon Dioxide 27.2 Anion Gap 5.8 BUN 35 H Creatinine 1.4 H Est GFR (CKD-EPI 2020) 55.78 Glucose 246 H Calcium 9.5 Total Bilirubin 0.28 AST 30 ALT 43 Alkaline Phosphatase 101 Total Protein 6.3 L Albumin 3.3 L PFSH All Active Problems (Updated 06/23/24 @ 13:03 by Venkat Rodriguez MD) Thoracic spine tumor (Acute) Hypomagnesemia (Acute) Acute hypercapnic respiratory failure (Acute) Pleural effusion on left (Acute) COPD (chronic obstructive pulmonary disease) (Chronic) Personal history of nicotine dependence (Acute) Atherosclerosis of coronary artery without angina pectoris (Acute) Primary malignant neoplasm of left lung (Chronic) Acquired pes planus of right foot (Acute) Disorder of the skin and subcutaneous tissue, unspecified (Acute) Increased frequency of urination (Acute) Nausea (Acute) Dizziness and giddiness (Acute) Pain, joint, ankle and foot (Acute) Chronic renal impairment (Acute) Umbilical hernia without obstruction and without gangrene (Acute) Hypertensive disorder (Chronic) Neuropathy (Acute) Obstructive sleep apnea syndrome in adult (Acute) Insomnia (Acute) Acute stress disorder (Acute) Obesity (Chronic) Hyperlipidemia (Acute) Type 2 diabetes mellitus without complication (Chronic) Medical History COPD (chronic obstructive pulmonary disease) Emphysematous bleb of lung Family History Mother Cancer Father Cancer Social History Smoking/Tobacco Use Status: Former Tobacco Use Quit Date: 05/27/01 Smoking risk assessment performed?: Yes Alcohol Intake: never Drug use: Never Substance use type: does not use Housing: house Do you feel safe at home: Yes Do you feel safe in your relationship?: Yes Time Spent with Patient Time Spent with Patient: 45-69 minutes Time was spent: preparing to see the patient(eg.review tests), obtaining and/or reviewing separately otained hiistory, ordering medications,tests, procedures, referring, communicating with other health health care recruiter, indepentently interpreting results, counseling the patient and care coordination
--- NOTE | 2024-06-24 13:20 | NUR.NOTE ---
Nursing Note: Discharge instructions reviewed. He is aware of f/u appts and the plan going forward. Pt is waiting for his ride home.
--- NOTE | 2024-06-24 19:28 | PDOC.CMDIS ---
Date of service: 06/24/24 Time of Service: 19:28 LACE Index Scoring Tool Questions: Length of Stay (in days): 3 Was the patient admitted via the E.D.?: Yes Comorbidities: Diabetes w/o Complication, Chronic Pulmonary Disease and Metastatic Solid Tumor E.D. Visits: 0 Answers: Total Score: 11 Risk of Readmission: High Risk Care Management Discharge Plan Reason for Hospitalization: Left PE, COPD Discharge Plan: Shad returned home today with no new services. He was transported home via private vehicle by family. He will follow up with his PCP and discharge plan of care. Patient/Family Education Needs: Review discharge instructions and limitations, discussion of self care needs including ask me three. SDOH Health Related Social Needs: Health related social needs education (Z55.6)
== END 2024-06-24 13:55 | disposition home or self-care (01) ==
LOC: ER 06-22 01:09 → MS 06-22 01:11
PROVIDERS: Hospitalist; Admitting Provider Family Medicine; Emergency Provider Nurse Practitioner Family; PCP Family Medicine; Visit Provider Family Medicine
DX: J44.1 Chronic obstructive pulmonary disease with (acute) exacerbation (principal); J96.02 Acute respiratory failure with hypercapnia; J90 Pleural effusion, not elsewhere classified; E83.42 Hypomagnesemia; R07.89 Other chest pain; E11.22 Type 2 diabetes mellitus with diabetic chronic kidney disease; C15.8 Malignant neoplasm of overlapping sites of esophagus; Z87.891 Personal history of nicotine dependence; R42 Dizziness and giddiness; R51.9 Headache, unspecified; I25.10 Atherosclerotic heart disease of native coronary artery without angina pectoris; I10 Essential (primary) hypertension; G62.9 Polyneuropathy, unspecified; G47.33 Obstructive sleep apnea (adult) (pediatric); N18.9 Chronic kidney disease, unspecified; G47.00 Insomnia, unspecified; E66.9 Obesity, unspecified; E78.5 Hyperlipidemia, unspecified; Z79.84 Long term (current) use of oral hypoglycemic drugs; Z79.899 Other long term (current) drug therapy; Z85.118 Personal history of other malignant neoplasm of bronchus and lung; Z92.21 Personal history of antineoplastic chemotherapy; Z92.3 Personal history of irradiation; M48.54XA Collapsed vertebra, not elsewhere classified, thoracic region, initial encounter for fracture
CPT/HCPCS: 00123; 36415; 71275; 80053; 82805; 85027; 87635; 93005; 94640; 96361; 96365; 96366; 96375; 96376; 99221; 99285; 72157; 83735; 83880; 84443; 84484; 85025; 85379; 93010; 93306; 94664; 94760; 99223; 99233; 99239; J1815; J2919; J3475; J3490; J7620

== ENCOUNTER 2025-03-22 00:28 | Outpatient (RCR) | payer MEDICARE, SELFPAY ==
[2025-03-22] MEDS: Normal Saline Flush 10 ML SYR IVP (12:42)
[2025-03-22 12:50] LABS: Abs Immature Grans 0.01 10^3/uL (0.0-0.06); HCT 40.7 % (40.0-50.0); HGB 13.2 g/dL (13.5-17.5); Immature Grans % 0.2 %; MCH 32.6 pg (27.0-33.0); MCHC 32.4 % (32.0-36.0); MCV 101 fL (80-95); MPV 9.4 fL (8.0-11.0); Platelet Count 226 10^3/uL (130-400); RBC 4.05 10^6/uL (4.36-5.78); RDW 14.0 % (11.8-14.1); RDW-SD 51.7 fL; WBC 6.24 10^3/uL (4.4-10.8)
[2025-03-22 13:18] LABS: ALT 27 U/L (16-63); AST 25 U/L (15-37); Albumin 3.5 g/dL (3.4-5.0); Alkaline Phosphatase 103 U/L (46-116); Anion Gap 9.8 mmol/L (3-11); BUN 21 mg/dL (7-18); Bilirubin, Total 0.5 mg/dL (0.2-1.0); CO2 28.2 mmol/L (21.0-32.0); Calcium 9.2 mg/dL (8.5-10.1); Chloride 103 mmol/L (98-107); Glucose 159 mg/dL (74-106); Magnesium 1.8 mg/dL (1.8-2.4); Potassium 4.4 mmol/L (3.5-5.1); Sodium 141 mmol/L (136-145); TSH 1.14 uIU/mL (0.36-3.74); Total Protein 6.8 g/dL (6.4-8.2)
[2025-03-22 22:35] LABS: CEA 1.7 ng/mL (See Note)
[2025-03-30 11:11] LABS: DPYD Phenotype Normal metabolizer; DPYD Total Activity Score 2
== END 2025-03-26 23:59 | disposition home or self-care (01) ==
LOC: INF 00:28
PROVIDERS: PCP Family Medicine; Visit Provider Internal Medicine Medical Oncology
DX: C15.5 Malignant neoplasm of lower third of esophagus (principal); Z79.899 Other long term (current) drug therapy; Z45.2 Encounter for adjustment and management of vascular access device
CPT/HCPCS: 36591; 80053; 81232; 82378; 83735; 84439; 84443; 85025

== ENCOUNTER 2025-04-19 03:16 | Outpatient (RCR) | payer MEDICARE, SELFPAY ==
[2025-04-06 08:13] LABS: Abs Immature Grans 0.01 10^3/uL (0.0-0.06); HCT 40.5 % (40.0-50.0); HGB 13.2 g/dL (13.5-17.5); Immature Grans % 0.2 %; MCH 32.7 pg (27.0-33.0); MCHC 32.6 % (32.0-36.0); MCV 100 fL (80-95); MPV 9.0 fL (8.0-11.0); Platelet Count 224 10^3/uL (130-400); RBC 4.04 10^6/uL (4.36-5.78); RDW 14.2 % (11.8-14.1); RDW-SD 52.7 fL; WBC 5.77 10^3/uL (4.4-10.8)
[2025-04-06 08:39] LABS: ALT 27 U/L (16-63); AST 28 U/L (15-37); Albumin 3.3 g/dL (3.4-5.0); Alkaline Phosphatase 89 U/L (46-116); Anion Gap 8.5 mmol/L (3-11); BUN 22 mg/dL (7-18); Bilirubin, Total 0.7 mg/dL (0.2-1.0); CO2 27.5 mmol/L (21.0-32.0); Calcium 8.8 mg/dL (8.5-10.1); Chloride 103 mmol/L (98-107); Estimated GFR 55.43 (mL/min/1.73m2); Glucose 106 mg/dL (74-106); Magnesium 1.8 mg/dL (1.8-2.4); Potassium 4.4 mmol/L (3.5-5.1); Sodium 139 mmol/L (136-145); TSH 1.70 uIU/mL (0.36-3.74); Total Protein 6.6 g/dL (6.4-8.2)
[2025-04-06] MEDS: Normal Saline Flush 10 ML SYR IVP (09:18)
[2025-04-06 18:19] LABS: CEA 1.2 ng/mL (See Note)
[2025-04-19] MEDS: Normal Saline Flush 10 ML SYR IVP (08:36)
[2025-04-19 09:04] LABS: Abs Immature Grans 0.00 10^3/uL (0.0-0.06); HCT 37.0 % (40.0-50.0); HGB 12.2 g/dL (13.5-17.5); Immature Grans % 0.0 %; MCH 32.8 pg (27.0-33.0); MCHC 33.0 % (32.0-36.0); MCV 100 fL (80-95); MPV 9.4 fL (8.0-11.0); Platelet Count 145 10^3/uL (130-400); RBC 3.72 10^6/uL (4.36-5.78); RDW 14.6 % (11.8-14.1); RDW-SD 51.5 fL; WBC 4.08 10^3/uL (4.4-10.8)
[2025-04-19 09:23] LABS: Magnesium 1.7 mg/dL (1.6-2.6)
[2025-04-19 09:25] LABS: ALT 21 U/L (10-49); AST 35 U/L (<34); Albumin 4.0 g/dL (3.4-5.0); Alkaline Phosphatase 85 U/L (46-116); Anion Gap 7.3 mmol/L (3-11); BUN 18 mg/dL (9-23); Bilirubin, Total 0.60 mg/dL (0.2-1.2); CO2 26.7 mmol/L (20.0-31.0); Calcium 9.2 mg/dL (8.3-10.6); Chloride 105 mmol/L (98-107); Glucose 149 mg/dL (74-106); Potassium 4.0 mmol/L (3.5-5.1); Sodium 139 mmol/L (136-145); Total Protein 6.3 g/dL (5.7-8.2)
[2025-04-19 09:27] LABS: TSH 1.29 uIU/mL (0.55-4.78)
== END 2025-04-25 23:59 | disposition home or self-care (01) ==
LOC: INF 03:16
PROVIDERS: PCP Family Medicine; Visit Provider Internal Medicine Medical Oncology
DX: C15.5 Malignant neoplasm of lower third of esophagus (principal); Z79.899 Other long term (current) drug therapy; Z45.2 Encounter for adjustment and management of vascular access device
CPT/HCPCS: 36591; 80053; 82378; 83735; 84439; 84443; 85025

== ENCOUNTER 2025-05-17 01:10 | Outpatient (RCR) | payer MEDICARE, SELFPAY ==
[2025-05-03 08:15] LABS: Abs Immature Grans 0.00 10^3/uL (0.0-0.06); HCT 38.9 % (40.0-50.0); HGB 13.0 g/dL (13.5-17.5); Immature Grans % 0.0 %; MCH 34.0 pg (27.0-33.0); MCHC 33.4 % (32.0-36.0); MCV 102 fL (80-95); MPV 9.3 fL (8.0-11.0); Platelet Count 156 10^3/uL (130-400); RBC 3.82 10^6/uL (4.36-5.78); RDW 15.5 % (11.8-14.1); RDW-SD 55.9 fL; WBC 2.15 10^3/uL (4.4-10.8)
[2025-05-03] MEDS: Normal Saline Flush 10 ML SYR IVP (08:15)
[2025-05-03 08:36] LABS: Magnesium 1.8 mg/dL (1.6-2.6)
[2025-05-03 08:37] LABS: ALT 26 U/L (10-49); AST 35 U/L (<34); Albumin 3.9 g/dL (3.2-5.0); Alkaline Phosphatase 103 U/L (46-116); Anion Gap 8.7 mmol/L (3-11); BUN 16 mg/dL (9-23); Bilirubin, Total 0.60 mg/dL (0.2-1.2); CO2 28.3 mmol/L (20.0-31.0); Calcium 9.3 mg/dL (8.3-10.6); Chloride 102 mmol/L (98-107); Glucose 164 mg/dL (74-106); Potassium 4.0 mmol/L (3.5-5.1); Sodium 139 mmol/L (136-145); Total Protein 6.2 g/dL (5.7-8.2)
[2025-05-03 08:40] LABS: TSH 1.88 uIU/mL (0.55-4.78)
[2025-05-03 18:17] LABS: CEA 2.3 ng/mL (See Note)
[2025-05-17] MEDS: Normal Saline Flush 10 ML SYR IVP (08:32)
[2025-05-17 08:55] LABS: Abs Immature Grans 0.00 10^3/uL (0.0-0.06); HCT 38.7 % (40.0-50.0); HGB 12.7 g/dL (13.5-17.5); Immature Grans % 0.0 %; MCH 34.0 pg (27.0-33.0); MCHC 32.8 % (32.0-36.0); MCV 104 fL (80-95); MPV 9.4 fL (8.0-11.0); Platelet Count 142 10^3/uL (130-400); RBC 3.73 10^6/uL (4.36-5.78); RDW 16.9 % (11.8-14.1); RDW-SD 61.2 fL
[2025-05-17 09:17] LABS: Magnesium 1.8 mg/dL (1.6-2.6)
[2025-05-17 09:19] LABS: ALT 25 U/L (10-49); AST 35 U/L (<34); Albumin 3.7 g/dL (3.2-5.0); Alkaline Phosphatase 113 U/L (46-116); Anion Gap 9.1 mmol/L (3-11); BUN 17 mg/dL (9-23); Bilirubin, Total 0.9 mg/dL (0.2-1.2); CO2 25.9 mmol/L (20.0-31.0); Calcium 9.1 mg/dL (8.3-10.6); Chloride 105 mmol/L (98-107); Glucose 208 mg/dL (74-106); Potassium 4.2 mmol/L (3.5-5.1); Sodium 140 mmol/L (136-145); Total Protein 6.1 g/dL (5.7-8.2)
[2025-05-17 09:20] LABS: TSH 1.88 uIU/mL (0.55-4.78)
[2025-05-17 09:41] LABS: RBC Morphology Normal; WBC 0.95 10^3/uL (4.4-10.8)
== END 2025-05-26 23:59 | disposition home or self-care (01) ==
LOC: INF 01:10
PROVIDERS: PCP Family Medicine; Visit Provider Internal Medicine Medical Oncology
DX: C15.5 Malignant neoplasm of lower third of esophagus (principal); Z79.899 Other long term (current) drug therapy; Z45.2 Encounter for adjustment and management of vascular access device
CPT/HCPCS: 36591; 80053; 82378; 83735; 84439; 84443; 85025

== ENCOUNTER 2025-05-17 16:16 | Outpatient (REF) | payer MEDICARE, SELFPAY ==
[2025-05-17 16:13] LABS: Glucose Negative (Negative)
[2025-05-17 16:31] LABS: C & S Indicated? No
== END 2025-05-17 16:17 | disposition home or self-care (01) ==
LOC: LBN 16:16
PROVIDERS: PCP Family Medicine; Visit Provider Nurse Practitioner Family
DX: R82.90 Unspecified abnormal findings in urine (principal)
CPT/HCPCS: 81003; 81015